=== PATIENT | male | born 1950 | race Caucasian/White ===

== ENCOUNTER 2017-12-20 16:23 | Inpatient (IN) | payer MEDICARE, OTHER ==
[2017-12-20] VITALS (11 sets, daily range): BP systolic 104–143; BP diastolic 65–75; PULSE 77–98; RESP 22–28; TEMP 97.3–98.7; O2SAT 95–98
[~2017-12-20] VITALS: Ht 175.3 cm; Wt 120.4 kg
[~2017-12-20 16:23] MED LIST: ADVA250A INH; ASPI-183 PO; CARV6.25 PO; DUTA1CAP2 PO; GABA300C5 PO; LIPI80TA PO; LOSA100T PO; SPIRCAP INH; TAMS0.4C4 PO
[2017-12-20] MEDS ORDERED: SPIR25TA PO (16:41)
[2017-12-20] MEDS ORDERED: ALBUAER3 INH (16:41)
[2017-12-20] MEDS ORDERED: ALFU10TA2 PO (16:41)
[2017-12-20] MEDS ORDERED: SODIUM CHLORIDE 0.9% FLUSH 10 ML FLUSH IVF PRN (16:45)
--- NOTE | 2017-12-20 16:45 | PD ---
HPI Chief Complaint: Respiratory Distress Time Seen by Provider: 16:25 Travel History International Travel<30 days: No Contact w/Intl Traveler<30days: No Traveled to known affect area: No History of Present Illness HPI This patient arrives critically ill. He complained of shortness of breath and called the paramedics. He has history of severe COPD. Uses CPAP at night and attaches 6 L to the machine at night he says. Paramedics found him on 6 L satting 84%. He has had a gradual worsening of his chronic shortness of breath over the last 24 hours. No chest pain or fever. He has an occasional dry cough. Symptoms are severe. He arrives in profound respiratory failure. BiPAP therapy is alleviating his discomfort to some degree. No exacerbating factors. PFSH Past Medical History Asthma: Yes Cardiovascular Problems: Yes High Cholesterol: Yes Diminished Hearing: No Hypertension: Yes Respiratory: Yes Immunizations Current: Yes Myocardial Infarction: Yes Tetanus Vaccination: Unknown Influenza Vaccination: Yes Past Surgical History Coronary Stent: Yes (X1) Joint Replacement: Yes (LEFT HIP) Social History Alcohol Use: Yes (4 DRINKS A DAY) Tobacco Use: No Substance Use: No Allergies-Medications (Allergen,Severity, Reaction): Coded Allergies: No Known Allergies (Verified Adverse Reaction, Unknown, 12/20/17) Reported Meds & Prescriptions Reported Meds & Active Scripts Active Reported Proair Hfa 8.5 GM Inh (Albuterol Sulfate) 90 Mcg/Act Aer 2 Puff INH Q4-6H PRN 108 mcg/actuation Spironolactone 25 Mg Tab 25 Mg PO BIDPC Alfuzosin ER 24 HR 10 Mg Tab 10 Mg PO DAILY Tamsulosin (Tamsulosin HCl) 0.4 Mg Cap 0.4 Mg PO HS Spiriva Handihaler (Tiotropium Inh) 18 Mcg Cap 18 Mcg INH DAILY 1 capsule = 18 mcg Gabapentin 300 Mg Cap 300 Mg PO BID Dutasteride 0.5 Mg Cap 0.5 Mg PO DAILY Advair Diskus Inh (Fluticasone-Salmeterol Inh) 250-50 Mcg/Blist Aer 1 Puff INH BID Rinse mouth after use. Lipitor (Atorvastatin Calcium) 80 Mg Tab 80 Mg PO HS Losartan (Losartan Potassium) 100 Mg Tab 100 Mg PO DAILY Coreg (Carvedilol) 6.25 Mg Tab 6.25 Mg PO BID Aspirin 325 Mg Tab 325 Mg PO DAILY Review of Systems General / Constitutional: No: Fever Eyes: No: Visual changes HENT: No: Headaches Cardiovascular: No: Chest Pain or Discomfort Respiratory: Positive: Cough, Shortness of Breath, Wheezing Gastrointestinal: No: Abdominal Pain Genitourinary: No: Dysuria Musculoskeletal: No: Pain Skin: No Rash Neurologic: No: Weakness Psychiatric: No: Depression Endocrine: No: Polydipsia Hematologic/Lymphatic: No: Easy Bruising Physical Exam Narrative GENERAL: Obese man arise on BiPAP and respiratory failure SKIN: Focused skin assessment reveals no rash and nodules. Skin is Warm and dry. HEAD: Atraumatic. Normocephalic. EYES: Pupils equal and round. No scleral icterus. No injection or drainage. ENT: No nasal bleeding or discharge. Mucous membranes pink and moist. NECK: Trachea midline. No JVD. CARDIOVASCULAR: Regular rate and rhythm. No murmur appreciated. Tachycardic without ectopy RESPIRATORY: Prominent accessory muscle use. Diffuse expiratory wheezing. Breath sounds equal bilaterally. GASTROINTESTINAL: Abdomen soft, non-tender, nondistended. Hepatic and splenic margins not palpable. MUSCULOSKELETAL: No obvious deformities. No clubbing. No cyanosis. No edema. NEUROLOGICAL: Awake and alert. No obvious cranial nerve deficits. Motor grossly within normal limits. Normal speech. PSYCHIATRIC: Appropriate mood and affect; insight and judgment normal. Data Data Last Documented VS Vital Signs Date Time Temp Pulse Resp B/P (MAP) Pulse Ox O2 Delivery O2 Flow Rate FiO2 12/20/17 17:19 99 CPAP 50 12/20/17 16:42 97.3 98 24 104/65 (78) Orders Orders Complete Blood Count With Diff (12/20/17 16:37) Basic Metabolic Panel (Bmp) (12/20/17 16:37) Iv Access Insert/Monitor (12/20/17 16:37) Electrocardiogram (12/20/17 16:37) Ecg Monitoring (12/20/17 16:37) Oximetry (12/20/17 16:37) Oxygen Administration (12/20/17 16:37) Chest, Single Ap (12/20/17 16:37) Sodium Chloride 0.9% Flush (Ns Flush) (12/20/17 16:45) Albuterol-Ipratropium Neb (Duoneb Neb) (12/20/17 16:45) Resp Bipap / Cpap Non Invas Vt (12/20/17 16:37) Furosemide Inj (Lasix Inj) (12/20/17 17:15) Admit Order (Ed Use Only) (12/20/17 17:26) Labs Laboratory Tests Test 12/20/17 16:30 White Blood Count 10.4 TH/MM3 Red Blood Count 4.67 MIL/MM3 Hemoglobin 15.0 GM/DL Hematocrit 44.7 % Mean Corpuscular Volume 95.8 FL Mean Corpuscular Hemoglobin 32.2 PG Mean Corpuscular Hemoglobin Concent 33.6 % Red Cell Distribution Width 14.8 % Platelet Count 230 TH/MM3 Mean Platelet Volume 8.5 FL Neutrophils (%) (Auto) 75.3 % Lymphocytes (%) (Auto) 13.8 % Monocytes (%) (Auto) 9.9 % Eosinophils (%) (Auto) 0.4 % Basophils (%) (Auto) 0.6 % Neutrophils # (Auto) 7.8 TH/MM3 Lymphocytes # (Auto) 1.4 TH/MM3 Monocytes # (Auto) 1.0 TH/MM3 Eosinophils # (Auto) 0.0 TH/MM3 Basophils # (Auto) 0.1 TH/MM3 CBC Comment DIFF FINAL Differential Comment Blood Urea Nitrogen 27 MG/DL Creatinine 1.36 MG/DL Random Glucose 117 MG/DL Calcium Level 8.8 MG/DL Sodium Level 138 MEQ/L Potassium Level 5.2 MEQ/L Chloride Level 104 MEQ/L Carbon Dioxide Level 24.6 MEQ/L Anion Gap 9 MEQ/L Estimat Glomerular Filtration Rate 52 ML/MIN MDM Medical Decision Making Medical Screen Exam Complete: Yes Emergency Medical Condition: Yes Medical Record Reviewed: Yes Differential Diagnosis Differential diagnosis includes COPD, asthma, pneumonia, bronchitis, CHF Narrative Course I have reviewed the patient's electronic medical record. This patient arrives in profound respiratory distress He is critically ill 2 IVs placed He had IV Solu-Medrol in route He had multiple nebulizer treatments Giving him 3 duo nebs as he still has diffuse wheezing On maintaining BiPAP support He reports this is improving and he is not as labored as he was. He will need closely watched with multiple rechecks. If he fails BiPAP therapy he will require intubation. He will be a very challenging intubation given his obesity and body habitus I reviewed his chest x-ray. Radiologist brings up the possibility of some pulmonary edema. I did give him 1 dose of IV Lasix in case there is some pulmonary edema contributing. He does not have any peripheral edema. He is on Spironolactone Reviewed his EKG shows no acute ST elevations Labs sent CBC is normal Metabolic profile reveals minimal abnormalities I placed a call to the wood handler to discuss. He will be a admission to intensive care on BiPAP therapy. Upon recheck he is clinically much improved. Saturations are up to upper 90s and he is breathing much easier. Critical Care Narrative Aggregate critical care time was 36 minutes. Time to perform other separately billable procedures was not included in the critical care time. My time did not include minutes spent treating any other patients simultaneously or on activities that did not directly contribute to the patient's treatment. The services I provided to this patient were to treat and/or prevent clinically significant deterioration that could result in: Respiratory failure, cardiopulmonary arrest, cardiac arrhythmia I provided critical care services requiring my management, as noted below: Chart data review, documentation time, medication orders and management, vital sign assessments/reviewing monitor data, ordering and reviewing lab tests, ordering and interpreting/reviewing x-rays and diagnostic studies, care of the patient and discussion of the patient with the admitting physicians. Diagnosis Primary Impression: Acute respiratory failure with hypoxia Additional Impression: COPD with acute exacerbation Admitting Information Admitting Physician Requests: Admit Óscar Mcmillan MD Dec 20, 2017 16:45
--- NOTE | 2017-12-20 17:01 | RADRPT ---
EXAM DATE/TIME: 12/20/2017 16:42 [facility] COMPARISON: No previous studies available for comparison. INDICATIONS : Short of breath. MEDICAL HISTORY : Hypertension. Chronic obstructive pulmonary disease. SURGICAL HISTORY : None. ENCOUNTER: Initial ACUITY: 1 day PAIN SCORE: 0/10 LOCATION: Bilateral chest FINDINGS: Cardiomegaly with moderate motion artifact. Probable mild to moderate interstitial edema. No pneumo thorax. No pleural effusion. The portion of the bony skeleton visualized is unremarkable. CONCLUSION: Cardiomegaly with probable mild/moderate congestive failure Moderate artifact from respiration. Lei Lomax MD FACR on December 20, 2017 at 16:58 Board Certified Radiologist. This report was verified electronically.
[2017-12-20] MEDS: RESP: ALBUTEROL 2.5 MG/IPRATROPIUM 0.5 MG NEB (SCH) INH ×2 (17:14→19:55)
[2017-12-20] MEDS ORDERED: FUROSEMIDE 100 MG/10 ML VIAL IV PUSH ONE (17:15)
[2017-12-20 17:21] LABS: AUTOMATED NEUTROPHIL # 7.8 TH/MM3 (1.8-7.7); BASOPHIL # 0.1 TH/MM3 (0-0.2); BASOPHIL % 0.6 % (0.0-2.0); EOSINOPHIL % 0.4 % (0.0-4.0); HEMATOCRIT 44.7 % (39.0-51.0); LYMPH % 13.8 % (9.0-44.0); LYMPHOCYTE # 1.4 TH/MM3 (1.0-4.8); MEAN CELL VOLUME 95.8 FL (80.0-100.0); MEAN CORPUSCULAR HEMOGLOBIN 32.2 PG (27.0-34.0); MEAN CORPUSCULAR HGB CONC 33.6 % (32.0-36.0); MEAN PLATELET VOLUME 8.5 FL (7.0-11.0); MONO % 9.9 % (0.0-8.0); NEUT % 75.3 % (16.0-70.0); PLATELET COUNT 230 TH/MM3 (150-450); RED BLOOD COUNT 4.67 MIL/MM3 (4.50-5.90); RED CELL DISTRIBUTION WIDTH 14.8 % (11.6-17.2); WHITE BLOOD COUNT 10.4 TH/MM3 (4.0-11.0)
[2017-12-20 17:30] LABS: BICARBONATE 24.6 MEQ/L (21.0-32.0); CALCIUM 8.8 MG/DL (8.5-10.1); CREATININE 1.36 MG/DL (0.60-1.30)
[2017-12-20] MEDS ORDERED: MISCELLANEOUS NURSING INFORMATION XX SCH (18:30)
[2017-12-20] MEDS ORDERED: CHLORHEXIDINE GLUCONATE 2 % 1 PACK (2 CLOTHS) TOP PRN (18:30)
[2017-12-20] MEDS ORDERED: ONDANSETRON HCL 4 MG/2 ML VIAL IV PUSH PRN (18:30)
[2017-12-20] MEDS ORDERED: LACTULOSE SYRUP 20 GM/30 ML CUP PO PRN (18:30)
[2017-12-20] MEDS ORDERED: ACETAMINOPHEN 325 MG TAB PO PRN (18:30)
[2017-12-20] MEDS ORDERED: MAGNESIUM HYDROXIDE SUSP 30 ML CUP PO PRN (18:30)
[2017-12-20] MEDS ORDERED: SENNOSIDES 8.6 MG TAB PO PRN (18:30)
[2017-12-20] MEDS ORDERED: SODIUM CHLORIDE 0.9% FLUSH 10 ML FLUSH IV FLUSH PRN (18:30)
[2017-12-20] MEDS ORDERED: BISACODYL 10 MG SUPP RECTAL PRN (18:30)
--- NOTE | 2017-12-20 18:50 | HHI.HP ---
HPI Service Critical Care Medicine Primary Care Physician Tree Hough MD Admission Diagnosis acute hypoxic resp failure, COPD Diagnosis: Travel History International Travel<30 Days: No Contact w/Intl Traveler <30 Da: No Traveled to Known Affected Are: No History of Present Illness 67-year-old morbidly obese gentleman complained of shortness of breath and called the paramedics. He has history of severe COPD. Uses CPAP at night and uses 6 L of oxygen at night. Paramedics found him on 6 L satting 84%. He has had a gradual worsening of his chronic shortness of breath over the last 24 hours. No chest pain or fever. He has an occasional dry cough. Presented to emergency department in profound respiratory failure. BiPAP therapy was immediately applied with IV steroids and some diuretics with improvement of symptoms. Review of Systems ROS Unobtainable patient's on facemask BiPAP in severe respiratory distress Past Family Social History Allergies: Coded Allergies: No Known Allergies (Verified Allergy, Unknown, 12/20/17) Past Medical History Asthma: Yes High Cholesterol: Yes Hypertension: Yes Myocardial Infarction: Yes 15 years ago Past Surgical History Coronary Stent: Yes (X1) Joint Replacement: Yes (LEFT HIP) Reported Medications Reported Meds & Active Scripts Active Reported Proair Hfa 8.5 GM Inh (Albuterol Sulfate) 90 Mcg/Act Aer 2 Puff INH Q4-6H PRN 108 mcg/actuation Spironolactone 25 Mg Tab 25 Mg PO BIDPC Alfuzosin ER 24 HR 10 Mg Tab 10 Mg PO DAILY Tamsulosin (Tamsulosin HCl) 0.4 Mg Cap 0.4 Mg PO HS Spiriva Handihaler (Tiotropium Inh) 18 Mcg Cap 18 Mcg INH DAILY 1 capsule = 18 mcg Gabapentin 300 Mg Cap 300 Mg PO BID Dutasteride 0.5 Mg Cap 0.5 Mg PO DAILY Advair Diskus Inh (Fluticasone-Salmeterol Inh) 250-50 Mcg/Blist Aer 1 Puff INH BID Rinse mouth after use. Lipitor (Atorvastatin Calcium) 80 Mg Tab 80 Mg PO HS Losartan (Losartan Potassium) 100 Mg Tab 100 Mg PO DAILY Coreg (Carvedilol) 6.25 Mg Tab 6.25 Mg PO BID Aspirin 325 Mg Tab 325 Mg PO DAILY Active Ordered Medications Current Medications Medications (Trade) Dose Ordered Sig/Marielena Route PRN Reason Start Time Stop Time Status Last Admin Dose Admin Sodium Chloride (NS Flush) 2 ml UNSCH PRN IVF FLUSH AFTER USING IV ACCESS 12/20/17 16:45 Aspirin (Aspirin) 325 mg DAILY PO 12/21/17 09:00 UNV Atorvastatin Calcium (Lipitor) 80 mg HS PO 12/20/17 21:00 UNV Carvedilol (Coreg) 6.25 mg BID PO 12/20/17 21:00 UNV Gabapentin (Neurontin) 300 mg BID PO 12/20/17 21:00 UNV Tamsulosin HCl (Flomax) 0.4 mg HS PO 12/20/17 21:00 UNV Tiotropium [place] (Spiriva Inh) 18 mcg DAILY INH 12/21/17 09:00 UNV Non-Formulary Medication 10 mg DAILY PO 12/21/17 09:00 UNV Non-Formulary Medication 0.5 mg DAILY PO 12/21/17 09:00 UNV Non-Formulary Medication 1 puff BID INH 12/20/17 21:00 UNV Sodium Chloride (NS Flush) 2 ml UNSCH PRN IV FLUSH FLUSH AFTER USING IV ACCESS 12/20/17 18:30 UNV Sodium Chloride (NS Flush) 2 ml BID IV FLUSH 12/20/17 21:00 UNV Acetaminophen (Tylenol) 650 mg Q6H PRN PO PAIN 1-5 AND/OR FEVER >101F 12/20/17 18:30 UNV Morphine Sulfate (Morphine Inj) 2 mg Q2H PRN IV PUSH PAIN SCALE 6 TO 10 12/20/17 18:30 UNV Famotidine (Pepcid Inj) 20 mg Q12HR IV PUSH 12/20/17 21:00 UNV Ondansetron HCl (Zofran Inj) 4 mg Q6H PRN IV PUSH NAUSEA OR VOMITING 12/20/17 18:30 UNV Temazepam (Restoril) 15 mg HS PRN PO INSOMNIA 12/20/17 18:30 UNV Albuterol/ Ipratropium (Duoneb Neb) 1 ampule Q4HR NEB INH 12/20/17 20:00 UNV Albuterol/ Ipratropium (Duoneb Neb) 1 ampule Q2HR NEB PRN INH WHEEZING 12/20/17 18:30 UNV Heparin Sodium (Porcine) (Heparin Inj) 5,000 units Q8H SQ 12/20/17 18:30 UNV Miscellaneous Information 1 Q361D XX 12/20/17 18:30 UNV Chlorhexidine Gluconate (Chlorhexidine 2% Cloth) 3 pack Taper DAILY@04 TOP 12/21/17 04:00 12/17/18 03:59 UNV Chlorhexidine Gluconate (Chlorhexidine 2% Cloth) 3 pack UNSCH PRN TOP HYGIENIC CARE 12/20/17 18:30 UNV Senna/Docusate Sodium (Cherrie-Colace) 1 tab BID PO 12/20/17 21:00 UNV Magnesium Hydroxide (Milk Of Magnesia Liq) 30 ml Q12H PRN PO Mild constipation 12/20/17 18:30 UNV Sennosides (Senokot) 17.2 mg Q12H PRN PO Moderate constipation 12/20/17 18:30 UNV Bisacodyl (Dulcolax Supp) 10 mg DAILY PRN RECTAL SEVERE CONSITIPATION 12/20/17 18:30 UNV Lactulose (Lactulose Liq) 30 ml DAILY PRN PO SEVERE CONSITIPATION 12/20/17 18:30 UNV Methylprednisolone Sodium Succinate (SoluMEDROL INJ) 40 mg Q6HR IV PUSH 12/21/17 00:00 UNV Losartan Potassium (Cozaar) 100 mg DAILY PO 12/21/17 09:00 UNV Furosemide (Lasix Inj) 20 mg Q6H IV PUSH 12/20/17 18:45 12/22/17 00:46 UNV Family History No family history significant of early coronary artery disease or malignancy Social History Alcohol Use: Yes (4 DRINKS A DAY) Tobacco Use: No, he quit smoking 6 months ago, lifelong smoker otherwise Substance Use: No Physical Exam Vital Signs Vital Signs Date Time Temp Pulse Resp B/P (MAP) Pulse Ox O2 Delivery O2 Flow Rate FiO2 12/20/17 18:16 92 23 119/75 (90) 95 BiPAP 50 12/20/17 17:19 99 CPAP 50 12/20/17 16:42 97.3 98 24 104/65 (78) 97 CPAP 100 12/20/17 16:42 97 CPAP 100 12/20/17 16:33 87 22 143/75 (97) 97 CPAP 100 12/20/17 16:32 87 96 CPAP 100 12/20/17 16:25 79 143/75 (97) 95 Physical Exam GENERAL: Morbidly obese gentleman on the facemask BiPAP in moderate respiratory distress SKIN: Warm and dry. HEAD: Normocephalic. EYES: No scleral icterus. No injection or drainage. NECK: Supple, trachea midline. No JVD or lymphadenopathy. CARDIOVASCULAR: Regular rate and rhythm without murmurs, gallops, or rubs. RESPIRATORY: Breath sounds equal bilaterally. No accessory muscle use. GASTROINTESTINAL: Abdomen soft, non-tender, nondistended. MUSCULOSKELETAL: No cyanosis, or edema. BACK: Nontender without obvious deformity. NEURO EXAM: GCS: 15 Mental Status: The patient is alert and oriented to person, place, and time with normal speech. Cranial Nerves: Visual acuity intact bilaterally. Visual pino normal in all quadrants. Pupils are round, reactive to light. Extraocular movements are intact without ptosis. Hearing is normal bilaterally. Voice is normal. Tongue protrudes midline and moves symmetrically. Reflexes: Biceps, patellar, and Achilles are 2/4 bilaterally. No clonus. Sensation: Sensation is intact bilaterally to pain and light touch. Two-point discrimination is intact. Motor: Good muscle tone. Strength is 5/5 bilaterally. Cerebellar: Sarvls-hm-lolc and ozwb-qi-[id number] test normal bilaterally. Laboratory Laboratory Tests Test 12/20/17 16:30 White Blood Count 10.4 Red Blood Count 4.67 Hemoglobin 15.0 Hematocrit 44.7 Mean Corpuscular Volume 95.8 Mean Corpuscular Hemoglobin 32.2 Mean Corpuscular Hemoglobin Concent 33.6 Red Cell Distribution Width 14.8 Platelet Count 230 Mean Platelet Volume 8.5 Neutrophils (%) (Auto) 75.3 Lymphocytes (%) (Auto) 13.8 Monocytes (%) (Auto) 9.9 Eosinophils (%) (Auto) 0.4 Basophils (%) (Auto) 0.6 Neutrophils # (Auto) 7.8 Lymphocytes # (Auto) 1.4 Monocytes # (Auto) 1.0 Eosinophils # (Auto) 0.0 Basophils # (Auto) 0.1 CBC Comment DIFF FINAL Differential Comment Blood Urea Nitrogen 27 Creatinine 1.36 Random Glucose 117 Calcium Level 8.8 Sodium Level 138 Potassium Level 5.2 Chloride Level 104 Carbon Dioxide Level 24.6 Anion Gap 9 Estimat Glomerular Filtration Rate 52 Result Diagram: 12/20/17 1630 12/20/17 1630 Imaging Last 24 hours Impressions Chest X-Ray 12/20/17 1637 Signed Impressions: Service Date/Time: Wednesday, December 20, 2017 16:42 - CONCLUSION: Cardiomegaly with probable mild/moderate congestive failure Moderate artifact from respiration. Lei Lomax MD FACR Septic Shock Reassessment Septic shock perfusion: reassessment completed Caprini VTE Risk Assessment Caprini VTE Risk Assessment: Mod/High Risk (score >= 2) Caprini Risk Assessment Model Point Value = 1 Point Value = 2 Point Value = 3 Point Value = 5 Age 41-60 Minor surgery BMI > 25 kg/m2 Swollen legs Varicose veins or History of unexplained or recurrent spontaneous Oral contraceptives or hormone replacement Sepsis (< 1 month) Serious lung disease, including pneumonia (< 1 month) Abnormal pulmonary function Acute myocardial infarction Congestive heart failure (< 1 month) History of inflammatory bowel disease Medical patient at bed rest Age 61-74 Arthroscopic surgery Major open surgery (> 45 min) Laparoscopic surgery (> 45 min) Malignancy Confined to bed (> 72 hours) Immobilizing plaster cast Central venous access Age >= 75 History of VTE Family history of VTE Factor V Leiden Prothrombin [id number] Lupus anticoagulant Anticardiolipin antibodies Elevated serum homocysteine Heparin-induced thrombocytopenia Other congenital or acquired thrombophilia Stroke (< 1 month) Elective arthroplasty Hip, pelvis, or leg fracture Acute spinal cord injury (< 1 month) Prophylaxis Regimen Total Risk Factor Score Risk Level Prophylaxis Regimen 0-1 Low Early ambulation 2 Moderate Order ONE of the following: *Sequential Compression Device (SCD) *Heparin 5000 units SQ BID 3-4 Higher Order ONE of the following medications: *Heparin 5000 units SQ TID *Enoxaparin/Lovenox 40 mg SQ daily (WT < 150 kg, CrCl > 30 mL/min) *Enoxaparin/Lovenox 30 mg SQ daily (WT < 150 kg, CrCl > 10-29 mL/min) *Enoxaparin/Lovenox 30 mg SQ BID (WT < 150 kg, CrCl > 30 mL/min) AND/OR *Sequential Compression Device (SCD) 5 or more Highest Order ONE of the following medications: *Heparin 5000 units SQ TID (Preferred with Epidurals) *Enoxaparin/Lovenox 40 mg SQ daily (WT < 150 kg, CrCl > 30 mL/min) *Enoxaparin/Lovenox 30 mg SQ daily (WT < 150 kg, CrCl > 10-29 mL/min) *Enoxaparin/Lovenox 30 mg SQ BID (WT < 150 kg, CrCl > 30 mL/min) AND *Sequential Compression Device (SCD) Assessment and Plan Assessment and Plan Respiratory failure COPD exacerbation - DuoNeb scheduled and when necessary - IV steroids - Empiric antibiotics - Follow-up cultures and urine antigens - Pulmonary consultation Acute on chronic CHF - Rule out acute coronary syndrome - Patient's weigher and charger Dr. Mina will be consulted - Series of troponins EKGs - Repeat 2-D echo - Continue aspirin - Losartan - Coreg - Hold spironolactone due to height potassium - IV Lasix Hypertension - Continue home meds Coreg and losartan Renal insufficiency - Unknown baseline creatinine - We'll monitor urine output and creatinine levels and electrolytes DVT GI prophylaxis - Teds SCDs - Subcutaneous heparin - Pepcid Critical Care: The total critical care time was 35 minutes. Time to perform other separately billable procedures was not included in the critical care time. Efraín Painter MD Dec 20, 2017 6:50 pm
[2017-12-20] MEDS ORDERED: MORPHINE SULFATE 2 MG/ML INJ IV PRN (20:00)
[2017-12-20] MEDS ORDERED: NON-FORMULARY DRUG (Fluticasone-Salmeterol Inh (Advair Diskus Inh) 1 PUFF) INH SCH (21:00)
[2017-12-20] MEDS: BUDESONIDE-FORMOTEROL 160/4.5 MCG INHALER INH SCH (21:00)
[2017-12-20] MEDS: FUROSEMIDE 20 MG/2 ML VIAL IV PUSH SCH (21:07)
[2017-12-20] MEDS: LEVOFLOXACIN 750 MG PREMIX INJ 150 ML IV SCH (21:07)
[2017-12-20] MEDS: GABAPENTIN 300 MG CAP PO SCH (21:08)
[2017-12-20] MEDS: FAMOTIDINE 20 MG/2 ML VIAL IV PUSH SCH (21:08)
[2017-12-20] MEDS: SODIUM CHLORIDE 0.9% FLUSH 10 ML FLUSH IV FLUSH SCH (21:08)
[2017-12-20] MEDS: CARVEDILOL 6.25 MG TAB PO SCH (21:08)
[2017-12-20] MEDS: HEPARIN SODIUM - SQ 10,000 UNITS/ML VIAL SQ SCH (21:09)
[2017-12-20] MEDS: TAMSULOSIN HCL 0.4 MG CAP PO SCH (22:23)
[2017-12-20] MEDS: DOCUSATE SODIUM 50 MG/SENNA 8.6 MG TAB PO SCH (22:23)
[2017-12-20] MEDS: ATORVASTATIN 80 MG TAB PO SCH (22:23)
[2017-12-21] VITALS (34 sets, daily range): BP systolic 82–125; BP diastolic 51–74; PULSE 70–102; RESP 14–41; TEMP 97.7–98.5; O2SAT 89–97
[2017-12-21] MEDS: RESP: ALBUTEROL 2.5 MG/IPRATROPIUM 0.5 MG NEB (SCH) INH ×6 (00:17→20:18)
[2017-12-21] MEDS: TEMAZEPAM 15 MG CAP PO PRN ×2 (00:56→21:46)
[2017-12-21] MEDS: FUROSEMIDE 20 MG/2 ML VIAL IV PUSH SCH ×4 (00:56→19:51)
[2017-12-21] MEDS: methylPREDNISolone SOD SUCC 40 MG/1 ML VIAL IV PUSH SCH ×4 (00:56→17:41)
[2017-12-21] MEDS: RESP: ALBUTEROL 2.5 MG/IPRATROPIUM 0.5 MG NEB (PRN) INH (02:10)
[2017-12-21 02:42] LABS: ALBUMIN 3.3 GM/DL (3.4-5.0); AST (GOT) 14 U/L (15-37); BICARBONATE 27.6 MEQ/L (21.0-32.0); BLOOD UREA NITROGEN 35 MG/DL (7-18); CALCIUM 8.3 MG/DL (8.5-10.1); CHLORIDE 101 MEQ/L (98-107); CREATININE 1.48 MG/DL (0.60-1.30); GLOMERULAR FILTRATION RATE 47 ML/MIN (>89); GLUCOSE,RANDOM 154 MG/DL (74-106); MAGNESIUM 2.2 MG/DL (1.5-2.5); SODIUM (NA) 138 MEQ/L (136-145)
[2017-12-21 02:47] LABS: ALKALINE PHOSPHATASE 73 U/L (45-117); ALT (GPT) 21 U/L (12-78); PHOSPHORUS 4.8 MG/DL (2.5-4.9); TOTAL BILIRUBIN ADULT 0.4 MG/DL (0.2-1.0); TOTAL PROTEIN 7.7 GM/DL (6.4-8.2); TROPONIN I LESS THAN 0.02 NG/ML (0.02-0.05)
[2017-12-21] MEDS: CHLORHEXIDINE GLUCONATE 2 % 1 PACK (2 CLOTHS) TOP SCH (04:00)
--- NOTE | 2017-12-21 04:53 | RADRPT ---
EXAM DATE/TIME: 12/21/2017 03:07 [facility] COMPARISON: CHEST SINGLE AP, December 20, 2017, 16:42. INDICATIONS : Short of breath. MEDICAL HISTORY : Hypertension. Chronic obstructive pulmonary disease. SURGICAL HISTORY : ENCOUNTER: Subsequent ACUITY: 2 days PAIN SCORE: 0/10 LOCATION: Bilateral chest FINDINGS: Frontal view of the chest demonstrates ill-defined areas of non-consolidative infiltrate in the later al right lower lung. Left lung is clear. Moderate cardiomegaly is stable. Both hemidiaphragms are well delineated. CONCLUSION: No patchy non-consolidative infiltrates in the lower lateral right lung. Evangelist Blake MD on December 21, 2017 at 4:50 Board Certified Radiologist. This report was verified electronically.
[2017-12-21] MEDS: HEPARIN SODIUM - SQ 10,000 UNITS/ML VIAL SQ SCH ×3 (05:31→19:53)
[2017-12-21 07:23] LABS: INTERNATIONAL NORMALIZED RATIO 1.1 RATIO
--- NOTE | 2017-12-21 07:44 | MB ---
cc: Homero López MD, Daniel A MD DATE OF CONSULT: 12/20/2017 REQUESTING PHYSICIAN: Dr. Worley REASON FOR CONSULTATION: COPD exacerbation. HISTORY OF PRESENT ILLNESS: Mr. Garcia is a pleasant 67-year-old male with a longstanding history of COPD, obstructive sleep apnea, who uses a CPAP machine and oxygen at nighttime. He went on a cruise recently and his girlfriend was also sick. He has not been doing well for at least 1 week. He has been having increasing shortness of breath and has wheezing. Did not have fever or chills. No night sweats. Because of worsening of symptoms, he came to the emergency room. He had a workup done. His WBC count is 10.4, hemoglobin 15.0, hematocrit 44.7, MCV 95, platelet count 230. His sodium is 130, potassium 5.2, chloride 104, CO2 24, BUN 27, creatinine 1.36. Chest x-ray shows cardiomegaly, possible moderate congestive heart failure. He is put on BiPAP and now feels somewhat better. His sister and daughter are at the bedside. 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 MEDICATIONS: He is currently taking Spiriva once a day, aspirin 325 mg, losartan 100 mg, finasteride 5 mg a day, Solu-Medrol 40 mg q. 6 hours, Lipitor 80 mg a day, Coreg 6.25 mg twice a day, Neurontin 600 mg twice a day, Flomax 0.4 mg, Symbicort twice a day, albuterol/Atrovent nebulizer treatment, Levaquin 750 mg a day, temazepam 15 mg at nighttime. ALLERGIES: NO KNOWN DRUG ALLERGIES. SOCIAL HISTORY: He is and has a girlfriend. He has a long history of smoking, which he quit 6 months ago. He drinks 2-3 drinks at nighttime. 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 He used to travel a lot. FAMILY HISTORY: He has 2 children. REVIEW OF SYSTEMS: He walks only a short distance. Has gained some weight. No DVT or pulmonary embolism. He has a history of coronary artery disease. No seizures, stroke or embolism. PHYSICAL EXAM: GENERAL: Moderately obese male, short of breath on BiPAP. VITAL SIGNS: Blood pressure 113/66, heart rate 87, respirations 20, temperature 98. HEENT: Pupils are equal and reactive to light. Oral mucosa and nasal mucosa normal. NECK: Supple. JVD not raised. CHEST: He has bibasilar expiratory rhonchi. CARDIOVASCULAR: S1, S2 normal. ABDOMEN: Obese, nontender. Bowel sounds are present. EXTREMITIES: 1+ pedal edema. IMPRESSION: 1. Respiratory failure. 2. Chronic obstructive pulmonary disease exacerbation. 3. Obstructive sleep apnea. 4. Bronchitis. 5. Hypertension. 6. Coronary artery disease. 7. Morbid obesity. PLAN: I discussed with the patient and his family, he is being admitted to the intensive care unit. We will keep him on BiPAP, supplement his oxygen, continue antibiotic, aerosol treatment, IV Solu-Medrol and we will monitor his electrolytes. Further treatment will depend upon his course in the hospital. Thank you, Dr. Worley for this consult. Homero López MD ADA/DL , 09:41 PM , 07:43 AM
[2017-12-21 07:53] LABS: ALT (GPT) 21 U/L (12-78); AST (GOT) 15 U/L (15-37); BICARBONATE 24.3 MEQ/L (21.0-32.0); CHLORIDE 101 MEQ/L (98-107); CREATININE 1.46 MG/DL (0.60-1.30); GLOMERULAR FILTRATION RATE 48 ML/MIN (>89); GLUCOSE,RANDOM 148 MG/DL (74-106); MAGNESIUM 2.3 MG/DL (1.5-2.5); PHOSPHORUS 4.6 MG/DL (2.5-4.9); SODIUM (NA) 136 MEQ/L (136-145)
[2017-12-21 07:56] LABS: ALKALINE PHOSPHATASE 72 U/L (45-117); TOTAL BILIRUBIN ADULT 0.4 MG/DL (0.2-1.0); TOTAL PROTEIN 7.7 GM/DL (6.4-8.2)
[2017-12-21 07:57] LABS: BLOOD UREA NITROGEN 31 MG/DL (7-18)
[2017-12-21 08:05] LABS: AUTOMATED NEUTROPHIL # 5.8 TH/MM3 (1.8-7.7); BASOPHIL % 0.3 % (0.0-2.0); HEMATOCRIT 42.7 % (39.0-51.0); HEMOGLOBIN 14.6 GM/DL (13.0-17.0); LYMPH % 9.8 % (9.0-44.0); LYMPHOCYTE # 0.6 TH/MM3 (1.0-4.8); MEAN CELL VOLUME 95.2 FL (80.0-100.0); MEAN CORPUSCULAR HEMOGLOBIN 32.6 PG (27.0-34.0); MEAN CORPUSCULAR HGB CONC 34.2 % (32.0-36.0); MEAN PLATELET VOLUME 8.6 FL (7.0-11.0); MONO % 1.9 % (0.0-8.0); MONOCYTE # 0.1 TH/MM3 (0-0.9); PLATELET COUNT 180 TH/MM3 (150-450); RED BLOOD COUNT 4.49 MIL/MM3 (4.50-5.90); RED CELL DISTRIBUTION WIDTH 14.1 % (11.6-17.2); WHITE BLOOD COUNT 6.6 TH/MM3 (4.0-11.0)
[2017-12-21] MEDS: TIOTROPIUM BROMIDE 18 MCG INH INH SCH (09:00)
[2017-12-21] MEDS: GABAPENTIN 300 MG CAP PO SCH ×2 (09:00→19:53)
[2017-12-21] MEDS ORDERED: DUTASTERIDE 0.5 MG PO SCH (09:00)
[2017-12-21] MEDS ORDERED: ALFUZOSIN 10 MG PO SCH (09:00)
[2017-12-21] MEDS: SODIUM CHLORIDE 0.9% FLUSH 10 ML FLUSH IV FLUSH SCH ×2 (09:00→19:51)
[2017-12-21] MEDS: BUDESONIDE-FORMOTEROL 160/4.5 MCG INHALER INH SCH ×2 (09:00→19:53)
[2017-12-21] MEDS: LOSARTAN 50 MG TAB PO SCH (09:00)
[2017-12-21] MEDS: FINASTERIDE 5 MG TAB PO SCH (09:18)
[2017-12-21] MEDS: FAMOTIDINE 20 MG/2 ML VIAL IV PUSH SCH ×2 (09:18→19:51)
[2017-12-21] MEDS: DOCUSATE SODIUM 50 MG/SENNA 8.6 MG TAB PO SCH ×2 (09:18→19:52)
[2017-12-21] MEDS: ASPIRIN 325 MG TAB PO SCH (09:18)
[2017-12-21] MEDS: CARVEDILOL 6.25 MG TAB PO SCH ×2 (09:18→19:52)
[2017-12-21] MEDS ORDERED: oxyCODONE/ACETAMINOPHEN 5 MG/325 MG TAB PO PRN (10:45)
[2017-12-21] MEDS ORDERED: oxyCODONE/ACETAMINOPHEN 10 MG/325 MG TAB PO PRN (10:45)
[2017-12-21] MEDS ORDERED: SENNOSIDES 8.6 MG TAB PO PRN (10:45)
[2017-12-21] MEDS ORDERED: LACTULOSE SYRUP 20 GM/30 ML CUP PO PRN (10:45)
[2017-12-21] MEDS ORDERED: BISACODYL 10 MG SUPP RECTAL PRN (10:45)
[2017-12-21] MEDS ORDERED: METOCLOPRAMIDE HCL 10 MG/2 ML VIAL IV PUSH PRN (10:45)
[2017-12-21] MEDS ORDERED: MAGNESIUM HYDROXIDE SUSP 30 ML CUP PO PRN (10:45)
[2017-12-21] MEDS ORDERED: ONDANSETRON HCL 4 MG/2 ML VIAL IVP PRN (10:45)
[2017-12-21] MEDS ORDERED: NALOXONE HCL 0.4 MG/ML AMP IV PUSH PRN (10:45)
[2017-12-21] MEDS ORDERED: cloNIDine HCL 0.1 MG TAB PO PRN (10:45)
--- NOTE | 2017-12-21 10:49 | HHI.PR ---
Subjective Remarks 67-year-old morbidly obese gentleman complained of shortness of breath and called the paramedics. He has history of severe COPD. Uses CPAP at night and uses 6 L of oxygen at night. Paramedics found him on 6 L satting 84%. He has had a gradual worsening of his chronic shortness of breath over the last 24 hours. No chest pain or fever. He has an occasional dry cough. Presented to emergency department in profound respiratory failure. BiPAP therapy was immediately applied with IV steroids and some diuretics with improvement of symptoms. 12-21 patient has been transferred to our service today from the critical care team Still short of breath Not sure how much oxygen he is on at home Patient states he only wears oxygen at night through his BiPAP/CPAP He states he does not wear it any other time of the day at home He states his hospital cleaner is Dr. HAWTHORNE We will ask him to evaluate and treat Increase physical therapy and Occupational Therapy We will add Mucinex and DuoNeb's and steroids and incentive spirometry A.m. labs Objective Vitals Vital Signs Date Time Temp Pulse Resp B/P (MAP) Pulse Ox O2 Delivery O2 Flow Rate FiO2 12/21/17 08:52 97 55 12/21/17 08:00 97.9 76 16 125/74 (91) 95 12/21/17 08:00 70 12/21/17 07:00 Bi-Pap 65 12/21/17 06:00 73 12/21/17 04:46 94 65 12/21/17 04:00 98.2 70 14 96/59 (71) 90 12/21/17 04:00 70 12/21/17 02:15 Bi-Pap 65 12/21/17 02:11 94 65 12/21/17 02:00 74 12/21/17 00:00 98.5 70 19 113/72 (86) 96 12/21/17 00:00 70 12/20/17 23:00 97 Bi-Pap 45 12/20/17 23:00 77 25 109/65 (80) 97 12/20/17 22:46 96 45 12/20/17 22:05 82 12/20/17 22:00 98 Partial Non-Rebreather 15.00 12/20/17 22:00 98.7 82 28 104/68 (80) 98 12/20/17 21:09 87 20 113/66 (82) 92 BiPAP 12/20/17 19:00 97 50 12/20/17 18:16 92 23 119/75 (90) 95 BiPAP 50 12/20/17 17:19 99 CPAP 50 12/20/17 16:42 97.3 98 24 104/65 (78) 97 CPAP 100 12/20/17 16:42 97 CPAP 100 12/20/17 16:37 97 100 12/20/17 16:33 87 22 143/75 (97) 97 CPAP 100 12/20/17 16:32 87 96 CPAP 100 12/20/17 16:25 79 143/75 (97) 95 I/O 12/20/17 12/20/17 12/20/17 12/21/17 12/21/17 12/21/17 07:00 15:00 23:00 07:00 15:00 23:00 Intake Total 330 ml Output Total 550 ml 600 ml Balance -550 ml -270 ml Intake Oral 180 ml IV Total 150 ml Output Urine Total 550 ml 600 ml # Voids 1 2 Result Diagram: 12/21/17 0640 12/21/17 0640 Other Results Laboratory Tests Test 12/20/17 16:30 12/20/17 22:30 12/21/17 02:15 12/21/17 05:29 White Blood Count 10.4 TH/MM3 Red Blood Count 4.67 MIL/MM3 Hemoglobin 15.0 GM/DL Hematocrit 44.7 % Mean Corpuscular Volume 95.8 FL Mean Corpuscular Hemoglobin 32.2 PG Mean Corpuscular Hemoglobin Concent 33.6 % Red Cell Distribution Width 14.8 % Platelet Count 230 TH/MM3 Mean Platelet Volume 8.5 FL Neutrophils (%) (Auto) 75.3 % Lymphocytes (%) (Auto) 13.8 % Monocytes (%) (Auto) 9.9 % Eosinophils (%) (Auto) 0.4 % Basophils (%) (Auto) 0.6 % Neutrophils # (Auto) 7.8 TH/MM3 Lymphocytes # (Auto) 1.4 TH/MM3 Monocytes # (Auto) 1.0 TH/MM3 Eosinophils # (Auto) 0.0 TH/MM3 Basophils # (Auto) 0.1 TH/MM3 CBC Comment DIFF FINAL Differential Comment Blood Urea Nitrogen 27 MG/DL 35 MG/DL Creatinine 1.36 MG/DL 1.48 MG/DL Random Glucose 117 MG/DL 154 MG/DL Calcium Level 8.8 MG/DL 8.3 MG/DL Sodium Level 138 MEQ/L 138 MEQ/L Potassium Level 5.2 MEQ/L 5.0 MEQ/L Chloride Level 104 MEQ/L 101 MEQ/L Carbon Dioxide Level 24.6 MEQ/L 27.6 MEQ/L Anion Gap 9 MEQ/L 9 MEQ/L Estimat Glomerular Filtration Rate 52 ML/MIN 47 ML/MIN Troponin I LESS THAN 0.02 NG/ML LESS THAN 0.02 NG/ML Nasal Screen MRSA (PCR) MRSA NOT DETECTED Total Protein 7.7 GM/DL Albumin 3.3 GM/DL Phosphorus Level 4.8 MG/DL Magnesium Level 2.2 MG/DL Alkaline Phosphatase 73 U/L Aspartate Amino Transf (AST/SGOT) 14 U/L Alanine Aminotransferase (ALT/SGPT) 21 U/L Total Bilirubin 0.4 MG/DL Blood Gas Puncture Site RT RADIAL Blood Gas Patient Temperature 98.6 Blood Gas HCO3 26 mmol/L Blood Gas Base Excess 0.7 mmol/L Blood Gas Oxygen Saturation 96 % Arterial Blood pH 7.30 Arterial Blood Partial Pressure CO2 55 mmHg Arterial Blood Partial Pressure O2 138 mmHg Arterial Blood Oxygen Content 19.7 Vol % Arterial Blood Carboxyhemoglobin 0.3 % Arterial Blood Methemoglobin 1.6 % Blood Gas Hemoglobin 14.4 G/DL Oxygen Delivery Device BIPAP Blood Gas Ventilator Setting 10/5 Blood Gas Inspired Oxygen 65 % Test 12/21/17 06:40 White Blood Count 6.6 TH/MM3 Red Blood Count 4.49 MIL/MM3 Hemoglobin 14.6 GM/DL Hematocrit 42.7 % Mean Corpuscular Volume 95.2 FL Mean Corpuscular Hemoglobin 32.6 PG Mean Corpuscular Hemoglobin Concent 34.2 % Red Cell Distribution Width 14.1 % Platelet Count 180 TH/MM3 Mean Platelet Volume 8.6 FL Neutrophils (%) (Auto) 88.0 % Lymphocytes (%) (Auto) 9.8 % Monocytes (%) (Auto) 1.9 % Eosinophils (%) (Auto) 0.0 % Basophils (%) (Auto) 0.3 % Neutrophils # (Auto) 5.8 TH/MM3 Lymphocytes # (Auto) 0.6 TH/MM3 Monocytes # (Auto) 0.1 TH/MM3 Eosinophils # (Auto) 0.0 TH/MM3 Basophils # (Auto) 0.0 TH/MM3 CBC Comment DIFF FINAL Differential Comment Hematology Comments Prothrombin Time 11.0 SEC Prothromb Time International Ratio 1.1 RATIO Activated Partial Thromboplast Time 28.0 SEC Blood Urea Nitrogen 31 MG/DL Creatinine 1.46 MG/DL Random Glucose 148 MG/DL Total Protein 7.7 GM/DL Albumin 3.0 GM/DL Calcium Level 8.0 MG/DL Phosphorus Level 4.6 MG/DL Magnesium Level 2.3 MG/DL Alkaline Phosphatase 72 U/L Aspartate Amino Transf (AST/SGOT) 15 U/L Alanine Aminotransferase (ALT/SGPT) 21 U/L Total Bilirubin 0.4 MG/DL Sodium Level 136 MEQ/L Potassium Level 5.0 MEQ/L Chloride Level 101 MEQ/L Carbon Dioxide Level 24.3 MEQ/L Anion Gap 11 MEQ/L Estimat Glomerular Filtration Rate 48 ML/MIN Imaging Last Impressions Chest X-Ray 12/21/17 0000 Signed Impressions: Service Date/Time: Thursday, December 21, 2017 03:07 - CONCLUSION: No patchy non-consolidative infiltrates in the lower lateral right lung. Evangelist Blake MD Objective Remarks GENERAL: Awake alert oriented 3 talkative and cooperative some moderate shortness of breath still SKIN: Warm and dry. HEAD: Atraumatic. Normocephalic. EYES: Pupils equal and round. No scleral icterus. No injection or drainage. Extraocular muscles intact ENT: No nasal bleeding or discharge. Mucous membranes pink and moist. Oral mucosa is moist tongue is midline NECK: Trachea midline. No JVD. Supple CARDIOVASCULAR: Regular rate and rhythm. S1-S2 no S3 or S4 RESPIRATORY: No accessory muscle use. Coarse breath sounds bilaterally with rhonchi throughout-- breath sounds equal bilaterally. GASTROINTESTINAL: Abdomen soft, non-tender, nondistended. Hepatic and splenic margins not palpable. Obese MUSCULOSKELETAL: Extremities without clubbing, cyanosis, or edema. No obvious deformities. NEUROLOGICAL: Awake and alert. No obvious cranial nerve deficits. Motor grossly within normal limits. 4 out of 5 muscle strength in the arms and legs. Normal speech. PSYCHIATRIC: Appropriate mood and affect; insight and judgment limited. Procedures None Medications and IVs Current Medications Sodium Chloride (NS Flush) 2 ml UNSCH PRN IVF FLUSH AFTER USING IV ACCESS; Start 12/20/17 at 16:45; Stop 12/20/17 at 19:50; Status DC Albuterol/ Ipratropium (Duoneb Neb) 1 ampule Q15M INH Last administered on 12/20at 17:14; Start 12/20/17 at 16:45; Stop 12/20/17 at 17:16; Status DC Furosemide (Lasix Inj) 60 mg ONCE ONCE IV PUSH Last administered on 12/20/17at 17:16; Start 12/20/17 at 17:15; Stop 12/20/17 at 17:16; Status DC Aspirin (Aspirin) 325 mg DAILY PO Last administered on 12/21/17at 09:18; Start 12/21/17 at 09:00 Atorvastatin Calcium (Lipitor) 80 mg HS PO Last administered on 12/20/17at 22:23 ; Start 12/20/17 at 21:00 Carvedilol (Coreg) 6.25 mg BID PO Last administered on 12/21/17at 09:18; Start 12/20/17 at 21:00 Gabapentin (Neurontin) 300 mg BID PO Last administered on 12/21/17at 09:00; Start 12/20/17 at 21:00 Tamsulosin HCl (Flomax) 0.4 mg HS PO Last administered on 12/20/17at 22:23; Start 12/20/17 at 21:00 Tiotropium Jansen (Spiriva Inh) 18 mcg DAILY INH ; Start 12/21/17 at 09:00 Non-Formulary Medication 10 mg DAILY PO ; Start 12/21/17 at 09:00; Status UNV Non-Formulary Medication 0.5 mg DAILY PO ; Start 12/21/17 at 09:00; Status UNV Non-Formulary Medication 1 puff BID INH ; Start 12/20/17 at 21:00; Status UNV Sodium Chloride (NS Flush) 2 ml UNSCH PRN IV FLUSH FLUSH AFTER USING IV ACCESS ; Start 12/20/17 at 18:30 Sodium Chloride (NS Flush) 2 ml BID IV FLUSH Last administered on 12/21/17at 09: 00; Start 12/20/17 at 21:00 Acetaminophen (Tylenol) 650 mg Q6H PRN PO PAIN 1-5 AND/OR FEVER >101F; Start at 18:30 Morphine Sulfate (Morphine Inj) 2 mg Q2H PRN IV PAIN SCALE 6 TO 10; Start 12/20 at 20:00 Famotidine (Pepcid Inj) 20 mg Q12HR IV PUSH Last administered on 12/21/17at 09: 18; Start 12/20/17 at 21:00 Ondansetron HCl (Zofran Inj) 4 mg Q6H PRN IV PUSH NAUSEA OR VOMITING; Start at 18:30 Temazepam (Restoril) 15 mg HS PRN PO INSOMNIA Last administered on 12/21/17at 00 :56; Start 12/20/17 at 18:30 Albuterol/ Ipratropium (Duoneb Neb) 1 ampule Q4HR NEB INH Last administered on 12/21/17at 08:54; Start 12/20/17 at 20:00 Albuterol/ Ipratropium (Duoneb Neb) 1 ampule Q2HR NEB PRN INH WHEEZING Last administered on 12/21/17at 02:10; Start 12/20/17 at 18:30 Heparin Sodium (Porcine) (Heparin Inj) 5,000 units Q8H SQ Last administered on 12/21/17at 05:31; Start 12/20/17 at 20:00 Miscellaneous Information 1 Q361D XX Last administered on 12/20/17at 22:00; Start 12/20/17 at 18:30 Chlorhexidine Gluconate (Chlorhexidine 2% Cloth) 3 pack Taper DAILY@04 TOP Last administered on 12/21/17at 04:00; Start 12/21/17 at 04:00; Stop 12/17/18 at 03:59 Chlorhexidine Gluconate (Chlorhexidine 2% Cloth) 3 pack UNSCH PRN TOP HYGIENIC CARE; Start 12/20/17 at 18:30 Senna/Docusate Sodium (Cherrie-Colace) 1 tab BID PO Last administered on at 09:18; Start 12/20/17 at 21:00 Magnesium Hydroxide (Milk Of Magnesia Liq) 30 ml Q12H PRN PO Mild constipation ; Start 12/20/17 at 18:30 Sennosides (Senokot) 17.2 mg Q12H PRN PO Moderate constipation; Start 12/20/17 at 18:30 Bisacodyl (Dulcolax Supp) 10 mg DAILY PRN RECTAL SEVERE CONSITIPATION; Start at 18:30 Lactulose (Lactulose Liq) 30 ml DAILY PRN PO SEVERE CONSITIPATION; Start at 18:30 Methylprednisolone Sodium Succinate (SoluMEDROL INJ) 40 mg Q6HR IV PUSH Last administered on 12/21/17at 05:30; Start 12/21/17 at 00:00 Losartan Potassium (Cozaar) 100 mg DAILY PO Last administered on 12/21/17at 09: 00; Start 12/21/17 at 09:00 Furosemide (Lasix Inj) 20 mg Q6H IV PUSH Last administered on 12/21/17at 09:19; Start 12/20/17 at 20:00; Stop 12/22/17 at 02:01 Levofloxacin/ Dextrose 150 ml @ 100 mls/hr Q24H IV Last administered on at 21:07; Start 12/20/17 at 20:00 Budesonide/ Formoterol Fumarate (Symbicort 160-4.5 Mcg Inh) 1 puff BID INH ; Start 12/20/17 at 21:00 Finasteride (Proscar) 5 mg DAILY PO Last administered on 12/21/17at 09:18; Start 12/21/17 at 09:00 A/P Assessment and Plan Respiratory failure COPD exacerbation - DuoNeb scheduled and when necessary - IV steroids - Empiric antibiotics - Follow-up cultures and urine antigens - Pulmonary consultation Acute on chronic CHF - Rule out acute coronary syndrome - 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 Mina will be consulted - Series of troponins EKGs - Repeat 2-D echo - Continue aspirin - Losartan - Coreg - Hold spironolactone due to elevated potassium - IV Lasix Hypertension - Continue home meds Coreg and losartan Renal insufficiency - Unknown baseline creatinine - We'll monitor urine output and creatinine levels and electrolytes Hyperlipidemia -Continue on home statin DVT GI prophylaxis - Teds SCDs - Subcutaneous heparin - Pepcid Discharge Planning We will get physical therapy and occupational therapy to eval and treat and await clearance by pulmonary and cardiology Lei Ayala DO Dec 21, 2017 10:49
[2017-12-21] MEDS: guaiFENesin E.R. 600 MG TAB PO SCH ×2 (11:00→19:52)
--- NOTE | 2017-12-21 14:57 | EKG ---
Date Performed: 12/21/2017 Time Performed: 00:41:40 PTAGE: 67 years EKG: Sinus rhythm Nonspecific intraventricular conduction delay Lateral T wave changes are nonspecific Abnormal ECG PREVIOUS TRACING : 12/20/2017 17.20 No significant change from previous tracing noted. DOCTOR: Mickey Ruvalcaba Interpretating Date/Time 12/21/2017 14:55:40
--- NOTE | 2017-12-21 15:07 | PD.CONS ---
HPI Service Cardiology Consult Requested By Dr Painter Reason for Consult CHF Primary Care Physician Tree Hough MD History of Present Illness The patient is a 67 year old male known to our practice with a cardiac history of CMP, ASHD, , HTN, HLD, and smoker. Other notable history of COPD. The patient presented to the hospital via EMS for severe SOB. He had a two day history of progressively worsening SOB associated with cough since returning from a cruise. He admits to recently smoking cigarettes again after remaining smoke-free for the past 6 months. The patient denies CP, palpitations, lightheadedness or edema. On evaluation, he was noted to be hypoxic with SpO2 85 % while on 6 liters O2. ABG revealed acute hypercapnic respiratory acidosis. CXR revealed pulmonary edema. He was treated for CHF exacerbation and COPD exacerbation. Today, evaluation, he remains on BIPAP, but is more comfortable compared to yesterday. EKG while in the exam room reveals irregularly irregular rhythm consistent with MAT/WAP. BP is low. He is receiving aggressive diuresis and received losartan 100 mg this morning. Review of Systems Consitutional: DENIES: Fatigue, Fever, Chills, Weight gain, Weight loss Eyes: DENIES: Amaurosis Fugax, Change in vision HEENT: DENIES: Lightheadedness, Change in hearing Respiratory: COMPLAINS OF: Cough, Shortness of breath, Wheezing, DENIES: See HPI, Snoring, Sputum production Cardiovascular: DENIES: See HPI, Chest pain, Palpitations, Syncope, Tachycardia Gastrointestinal: DENIES: Nausea, Vomiting, Change in bowel habits, Reflux, Bloody stools, Melena Genitourinary: DENIES: Urinary incontinence, Difficulty voiding Integumentary: DENIES: Rash Neurologic: DENIES: Tingling or numbness, Memory problems, Poor Balance, Stroke symptoms Musculoskeletal: DENIES: Joint pain, Muscle pain, Limited range of motion, Back pain Psychiatric: DENIES: Anxiety, Depression, Sleep disturbances Hematologic: DENIES: Bruising tendencies, Bleeding tendencies Endocrine: DENIES: Weight gain, Weight loss, Thyroid disease Past Family Social History Allergies: Coded Allergies: No Known Allergies (Verified Allergy, Unknown, 12/20/17) Past Medical History ASHD CMP HLD HTN Smoker carotid stenosis mild to mod Mild MR BPH Past Surgical History Heart cath 2015, 2002, 1998 Reported Medications Reported Meds & Active Scripts Active Reported Proair Hfa 8.5 GM Inh (Albuterol Sulfate) 90 Mcg/Act Aer 2 Puff INH Q4-6H PRN 108 mcg/actuation Spironolactone 25 Mg Tab 25 Mg PO BIDPC Alfuzosin ER 24 HR 10 Mg Tab 10 Mg PO DAILY Tamsulosin (Tamsulosin HCl) 0.4 Mg Cap 0.4 Mg PO HS Spiriva Handihaler (Tiotropium Inh) 18 Mcg Cap 18 Mcg INH DAILY 1 capsule = 18 mcg Gabapentin 300 Mg Cap 300 Mg PO BID Dutasteride 0.5 Mg Cap 0.5 Mg PO DAILY Advair Diskus Inh (Fluticasone-Salmeterol Inh) 250-50 Mcg/Blist Aer 1 Puff INH BID Rinse mouth after use. Lipitor (Atorvastatin Calcium) 80 Mg Tab 80 Mg PO HS Losartan (Losartan Potassium) 100 Mg Tab 100 Mg PO DAILY Coreg (Carvedilol) 6.25 Mg Tab 6.25 Mg PO BID Aspirin 325 Mg Tab 325 Mg PO DAILY Active Ordered Medications Current Medications Medications (Trade) Dose Ordered Sig/Marielena Route Start Time Stop Time Status Last Admin (Aspirin) 325 mg DAILY PO 12/21/17 09:00 12/21/17 09:18 (Lipitor) 80 mg HS PO 12/20/17 21:00 12/20/17 22:23 (Coreg) 6.25 mg BID PO 12/20/17 21:00 12/21/17 09:18 (Neurontin) 300 mg BID PO 12/20/17 21:00 12/21/17 09:00 (Flomax) 0.4 mg HS PO 12/20/17 21:00 12/20/17 22:23 (Spiriva Inh) 18 mcg DAILY INH 12/21/17 09:00 (Tylenol) 650 mg Q6H PRN PO 12/20/17 18:30 (Morphine Inj) 2 mg Q2H PRN IV 12/20/17 20:00 (Pepcid Inj) 20 mg Q12HR IV PUSH 12/20/17 21:00 12/21/17 09:18 (Restoril) 15 mg HS PRN PO 12/20/17 18:30 12/21/17 00:56 (Duoneb Neb) 1 ampule Q4HR NEB INH 12/20/17 20:00 12/21/17 12:37 (Duoneb Neb) 1 ampule Q2HR NEB PRN INH 12/20/17 18:30 12/21/17 02:10 (Heparin Inj) 5,000 units Q8H SQ 12/20/17 20:00 12/21/17 12:00 Miscellaneous Information 1 Q361D XX 12/20/17 18:30 12/20/17 22:00 (Chlorhexidine 2% Cloth) 3 pack Taper DAILY@04 TOP 12/21/17 04:00 12/17/18 03:59 12/21/17 04:00 (Chlorhexidine 2% Cloth) 3 pack UNSCH PRN TOP 12/20/17 18:30 (SoluMEDROL INJ) 40 mg Q6HR IV PUSH 12/21/17 00:00 12/21/17 12:00 (Cozaar) 100 mg DAILY PO 12/21/17 09:00 12/21/17 09:00 (Lasix Inj) 20 mg Q6H IV PUSH 12/20/17 20:00 12/22/17 02:01 12/21/17 09:19 Levofloxacin/ Dextrose 150 ml @ 100 mls/hr Q24H IV 12/20/17 20:00 12/20/17 21:07 (Symbicort 160-4.5 Mcg Inh) 1 puff BID INH 12/20/17 21:00 (Proscar) 5 mg DAILY PO 12/21/17 09:00 12/21/17 09:18 (Mucinex Er) 600 mg BID PO 12/21/17 11:00 12/21/17 11:00 (Catapres) 0.1 mg Q4H PRN PO 12/21/17 10:45 (NS Flush) 2 ml UNSCH PRN IV FLUSH 12/21/17 10:45 (NS Flush) 2 ml BID IV FLUSH 12/21/17 21:00 (Zofran Inj) 4 mg Q6H PRN IVP 12/21/17 10:45 (Reglan Inj) 5 mg Q6H PRN IV PUSH 12/21/17 10:45 (Percocet 5-325 Mg) 1 tab Q6H PRN PO 12/21/17 10:45 (Percocet 10-325 Mg) 1 tab Q6H PRN PO 12/21/17 10:45 (Narcan Inj) 0.4 mg UNSCH PRN IV PUSH 12/21/17 10:45 (Cherrie-Colace) 1 tab BID PO 12/21/17 21:00 (Milk Of Magnesia Liq) 30 ml Q12H PRN PO 12/21/17 10:45 (Senokot) 17.2 mg Q12H PRN PO 12/21/17 10:45 (Dulcolax Supp) 10 mg DAILY PRN RECTAL 12/21/17 10:45 (Lactulose Liq) 30 ml DAILY PRN PO 12/21/17 10:45 Family History non contributory Social History Recently resumed smoking after quitting smoking about 6 months ago Physical Exam Vital Signs Vital Signs Date Time Temp Pulse Resp B/P (MAP) Pulse Ox O2 Delivery O2 Flow Rate FiO2 12/21/17 14:00 95 12/21/17 13:15 93 30 97 12/21/17 13:09 91 26 85/51 (62) 97 12/21/17 13:00 87 24 85/53 (64) 96 12/21/17 12:51 86 23 89/63 (72) 97 12/21/17 12:45 88 20 97 12/21/17 12:38 97 55 12/21/17 12:36 98 23 90/63 (72) 97 12/21/17 12:30 102 25 95 12/21/17 12:15 100 21 95 12/21/17 12:01 97 22 82/58 (66) 95 12/21/17 12:00 100 21 95 12/21/17 12:00 83 12/21/17 11:00 100 27 97/61 (73) 89 12/21/17 10:46 99 29 89 12/21/17 10:00 95 12/21/17 08:52 97 55 12/21/17 08:00 97.9 76 16 125/74 (91) 95 12/21/17 08:00 70 12/21/17 07:00 Bi-Pap 65 12/21/17 06:00 73 12/21/17 04:46 94 65 12/21/17 04:00 98.2 70 14 96/59 (71) 90 12/21/17 04:00 70 12/21/17 02:15 Bi-Pap 65 12/21/17 02:11 94 65 12/21/17 02:00 74 12/21/17 00:00 98.5 70 19 113/72 (86) 96 12/21/17 00:00 70 12/20/17 23:00 97 Bi-Pap 45 12/20/17 23:00 77 25 109/65 (80) 97 12/20/17 22:46 96 45 12/20/17 22:05 82 12/20/17 22:00 98 Partial Non-Rebreather 15.00 12/20/17 22:00 98.7 82 28 104/68 (80) 98 12/20/17 22:00 98 Partial Rebreather 15.00 12/20/17 21:09 87 20 113/66 (82) 92 BiPAP 12/20/17 19:00 97 50 12/20/17 18:16 92 23 119/75 (90) 95 BiPAP 50 12/20/17 17:19 99 CPAP 50 12/20/17 16:42 97.3 98 24 104/65 (78) 97 CPAP 100 12/20/17 16:42 97 CPAP 100 12/20/17 16:37 97 100 12/20/17 16:33 87 22 143/75 (97) 97 CPAP 100 12/20/17 16:32 87 96 CPAP 100 12/20/17 16:25 79 143/75 (97) 95 Physical Exam GENERAL: Middle aged male in ICU on BIPAP SKIN: Warm and dry. HEAD: Atraumatic. Normocephalic. EYES: Pupils equal and round. No scleral icterus. No injection or drainage. ENT: No nasal bleeding or discharge. Mucous membranes pink and moist. NECK: Trachea midline. CARDIOVASCULAR: Irreg irreg, tachycardia, murmur. RESPIRATORY: BIPAP, scattered rhonchi, I/E wheezing GASTROINTESTINAL: Abdomen soft, non-tender, nondistended. Obese MUSCULOSKELETAL: Extremities without clubbing, cyanosis, or edema. No obvious deformities. NEUROLOGICAL: Awake and alert. No obvious cranial nerve deficits. Normal speech. PSYCHIATRIC: Appropriate mood and affect; insight and judgment normal. Laboratory Laboratory Tests Test 12/20/17 16:30 12/20/17 22:30 12/21/17 02:15 12/21/17 05:29 White Blood Count 10.4 Red Blood Count 4.67 Hemoglobin 15.0 Hematocrit 44.7 Mean Corpuscular Volume 95.8 Mean Corpuscular Hemoglobin 32.2 Mean Corpuscular Hemoglobin Concent 33.6 Red Cell Distribution Width 14.8 Platelet Count 230 Mean Platelet Volume 8.5 Neutrophils (%) (Auto) 75.3 Lymphocytes (%) (Auto) 13.8 Monocytes (%) (Auto) 9.9 Eosinophils (%) (Auto) 0.4 Basophils (%) (Auto) 0.6 Neutrophils # (Auto) 7.8 Lymphocytes # (Auto) 1.4 Monocytes # (Auto) 1.0 Eosinophils # (Auto) 0.0 Basophils # (Auto) 0.1 CBC Comment DIFF FINAL Differential Comment Blood Urea Nitrogen 27 35 Creatinine 1.36 1.48 Random Glucose 117 154 Calcium Level 8.8 8.3 Sodium Level 138 138 Potassium Level 5.2 5.0 Chloride Level 104 101 Carbon Dioxide Level 24.6 27.6 Anion Gap 9 9 Estimat Glomerular Filtration Rate 52 47 Troponin I LESS THAN 0.02 LESS THAN 0.02 Nasal Screen MRSA (PCR) MRSA NOT DETECTED Total Protein 7.7 Albumin 3.3 Phosphorus Level 4.8 Magnesium Level 2.2 Alkaline Phosphatase 73 Aspartate Amino Transf (AST/SGOT) 14 Alanine Aminotransferase (ALT/SGPT) 21 Total Bilirubin 0.4 Blood Gas Puncture Site RT RADIAL Blood Gas Patient Temperature 98.6 Blood Gas HCO3 26 Blood Gas Base Excess 0.7 Blood Gas Oxygen Saturation 96 Arterial Blood pH 7.30 Arterial Blood Partial Pressure CO2 55 Arterial Blood Partial Pressure O2 138 Arterial Blood Oxygen Content 19.7 Arterial Blood Carboxyhemoglobin 0.3 Arterial Blood Methemoglobin 1.6 Blood Gas Hemoglobin 14.4 Oxygen Delivery Device BIPAP Blood Gas Ventilator Setting 10/5 Blood Gas Inspired Oxygen 65 Test 12/21/17 06:40 White Blood Count 6.6 Red Blood Count 4.49 Hemoglobin 14.6 Hematocrit 42.7 Mean Corpuscular Volume 95.2 Mean Corpuscular Hemoglobin 32.6 Mean Corpuscular Hemoglobin Concent 34.2 Red Cell Distribution Width 14.1 Platelet Count 180 Mean Platelet Volume 8.6 Neutrophils (%) (Auto) 88.0 Lymphocytes (%) (Auto) 9.8 Monocytes (%) (Auto) 1.9 Eosinophils (%) (Auto) 0.0 Basophils (%) (Auto) 0.3 Neutrophils # (Auto) 5.8 Lymphocytes # (Auto) 0.6 Monocytes # (Auto) 0.1 Eosinophils # (Auto) 0.0 Basophils # (Auto) 0.0 CBC Comment DIFF FINAL Differential Comment Hematology Comments Prothrombin Time 11.0 Prothromb Time International Ratio 1.1 Activated Partial Thromboplast Time 28.0 Blood Urea Nitrogen 31 Creatinine 1.46 Random Glucose 148 Total Protein 7.7 Albumin 3.0 Calcium Level 8.0 Phosphorus Level 4.6 Magnesium Level 2.3 Alkaline Phosphatase 72 Aspartate Amino Transf (AST/SGOT) 15 Alanine Aminotransferase (ALT/SGPT) 21 Total Bilirubin 0.4 Sodium Level 136 Potassium Level 5.0 Chloride Level 101 Carbon Dioxide Level 24.3 Anion Gap 11 Estimat Glomerular Filtration Rate 48 Date/Time Source Procedure Growth Status 12/20/17 23:00 Urine Random Urine Legionella Antigen - Final PRESUMPTIVE NEGATIVE FOR LEGIONELLA P... Complete 12/20/17 23:00 Urine Random Urine Streptococcus pneumoniae Antigen (M - Final PRESUMPTIVE NEGATIVE FOR STREPTOCOCCU... Complete Result Diagram: 12/21/17 0640 12/21/17 0640 Imaging Last 72 hours Impressions Chest X-Ray 12/21/17 0000 Signed Impressions: Service Date/Time: Thursday, December 21, 2017 03:07 - CONCLUSION: No patchy non-consolidative infiltrates in the lower lateral right lung. Evangelist Blake MD Chest X-Ray 12/20/17 1637 Signed Impressions: Service Date/Time: Wednesday, December 20, 2017 16:42 - CONCLUSION: Cardiomegaly with probable mild/moderate congestive failure Moderate artifact from respiration. 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 He did not tolerate Aldactone in the past due to breast tenderness Decrease losartan Pending echo Pulmonary following The patient was seen and evaluated by Dr Mina who completed face to face encounter, physical exam and participated in evaluation and management. Lakshmi Logan Dec 21, 2017 15:07
--- NOTE | 2017-12-21 15:53 | EKG ---
Date Performed: 12/20/2017 Time Performed: 17:20:57 PTAGE: 67 years EKG: Sinus rhythm NONSPECIFIC INTRAVENTRICULAR CONDUCTION DELAY NONSPECIFIC ST/T CHANGES BORDERLINE ECG PREVIOUS TRACING : 09/18/2016 11.12 No significant change from previous tracing noted. DOCTOR: Mickey Ruvalcaba Interpretating Date/Time 12/21/2017 15:52:11
--- NOTE | 2017-12-21 18:11 | ECHRPT ---
Indication: HEART FAILURE CONCLUSIONS Mildly dilated left ventricle. Mild concentric left ventricular hypertrophy. The left ventricular systolic function is grossly normal on limited imaging. The left ventricular systolic function is low normal with an estimated ejection fraction in the rang e of 50- 55%. . BP: 125 / 74 HR: 70 Rhythm: Sinus MEASUREMENTS (Male / Female) Normal Values Technical Quality:Very technically difficult study 2D ECHO LV Diastolic Diameter PLAX 5.8 cm 4.2 - 5.9 / 3.9 - 5.3 cm LV Systolic Diameter PLAX 3.5 cm IVS Diastolic Thickness 1.3 cm 0.6 - 1.0 / 0.6 - 0.9 cm LVPW Diastolic Thickness 1.3 cm 0.6 - 1.0 / 0.6 - 0.9 cm LV Relative Wall Thickness 0.5 RV Internal Dim ED PLAX 1.9 cm LVOT Diameter 2.2 cm Aortic Root Diameter 2.9 cm LA Systolic Diameter LX 3.6 cm 3.0 - 4.0 / 2.7 - 3.8 cm M-MODE AV Cusp Separation MM 1.6 cm FINDINGS LEFT VENTRICLE Mildly dilated left ventricle. Mild concentric left ventricular hypertrophy. The left ventricular systolic function is grossly normal on limited imaging. The left ventricular systolic function is low normal with an estimated ejection fraction in the rang e of 50- 55%. RIGHT VENTRICLE Normal right ventricular size and systolic function. LEFT ATRIUM The left atrial size is normal. RIGHT ATRIUM The right atrial size is normal. ATRIAL SEPTUM Normal atrial septal thickness without atrial level shunting by limited color doppler interrogation. AORTA The aortic root and proximal ascending aorta are normal in size on limited imaging. MITRAL VALVE Structurally normal mitral valve. No mitral valve stenosis or regurgitation. AORTIC VALVE Trileaflet aortic valve. No aortic valve stenosis or regurgitation. TRICUSPID VALVE Structurally normal tricuspid valve. No tricuspid valve stenosis or regurgitation. PULMONARY VALVE The pulmonary valve is not well visualized. VESSELS The inferior vena cava is normal in size. PERICARDIUM No pericardial effusion. Yaakov Pettit MD, FACC (Electronically Signed) Final Date:21 December 2017 18:10
--- NOTE | 2017-12-21 18:55 | HHI.PR ---
Subjective Remarks 67 YOMorbidly obese male with RF,COPD exac Using BIPAP, requiring high Fi02, 55% Up in chair BP Borderline Desaturates with any Activity Objective Vital Signs Vital Signs Date Time Temp Pulse Resp B/P (MAP) Pulse Ox O2 Delivery O2 Flow Rate FiO2 12/21/17 18:00 95 12/21/17 16:21 95 BiPAP 55 12/21/17 16:15 84 36 91 12/21/17 16:14 93 55 12/21/17 16:01 84 31 105/63 (77) 90 12/21/17 16:00 84 36 90 12/21/17 16:00 95 12/21/17 14:46 98.0 90 31 91/58 (69) 95 12/21/17 14:00 95 12/21/17 13:15 93 30 97 12/21/17 13:09 91 26 85/51 (62) 97 12/21/17 13:00 87 24 85/53 (64) 96 12/21/17 12:51 86 23 89/63 (72) 97 12/21/17 12:45 88 20 97 12/21/17 12:38 97 55 12/21/17 12:36 98 23 90/63 (72) 97 12/21/17 12:30 102 25 95 12/21/17 12:15 100 21 95 12/21/17 12:01 97 22 82/58 (66) 95 12/21/17 12:00 100 21 95 12/21/17 12:00 83 12/21/17 11:00 100 27 97/61 (73) 89 12/21/17 10:46 99 29 89 12/21/17 10:00 95 12/21/17 08:52 97 55 12/21/17 08:00 97.9 76 16 125/74 (91) 95 12/21/17 08:00 70 12/21/17 07:00 Bi-Pap 65 12/21/17 06:00 73 12/21/17 04:46 94 65 12/21/17 04:00 98.2 70 14 96/59 (71) 90 12/21/17 04:00 70 12/21/17 02:15 Bi-Pap 65 12/21/17 02:11 94 65 12/21/17 02:00 74 12/21/17 00:00 98.5 70 19 113/72 (86) 96 12/21/17 00:00 70 12/20/17 23:00 97 Bi-Pap 45 12/20/17 23:00 77 25 109/65 (80) 97 12/20/17 22:46 96 45 12/20/17 22:05 82 12/20/17 22:00 98 Partial Non-Rebreather 15.00 12/20/17 22:00 98.7 82 28 104/68 (80) 98 12/20/17 22:00 98 Partial Rebreather 15.00 12/20/17 21:09 87 20 113/66 (82) 92 BiPAP 12/20/17 19:00 97 50 I/O 12/20/17 12/20/17 12/20/17 12/21/17 12/21/17 12/21/17 07:00 15:00 23:00 07:00 15:00 23:00 Intake Total 330 ml Output Total 550 ml 600 ml Balance -550 ml -270 ml Intake Oral 180 ml IV Total 150 ml Output Urine Total 550 ml 600 ml # Voids 1 2 Result Diagram: 12/21/17 0640 12/21/17 0640 Objective Remarks GENERAL: Morbidly obese WM, sob SKIN: Warm and dry. HEAD: Normocephalic. EYES: No scleral icterus. No injection or drainage. NECK: Supple, trachea midline. No JVD or lymphadenopathy. CARDIOVASCULAR: Regular rate and rhythm without murmurs, gallops, or rubs. RESPIRATORY: Breath sounds equal bilaterally. No accessory muscle use. GASTROINTESTINAL: Abdomen soft, non-tender, nondistended. MUSCULOSKELETAL: No cyanosis, or edema. BACK: Nontender without obvious deformity. No CVA tenderness. A/P Assessment and Plan IMPRESSION: 1. Respiratory failure. 2. Chronic obstructive pulmonary disease exacerbation. 3. Obstructive sleep apnea. 4. Bronchitis. 5. Hypertension. 6. Coronary artery disease. 7. Morbid obesity. PLAN: Cont BIPAP Wean Fi02 to keep sat 88-92% IV Solumedrol Cont Levaquin Aerosol nebs Symbicort 2 puffs bid SQ Heparin. Homero López MD Dec 21, 2017 18:55
[2017-12-21] MEDS: LEVOFLOXACIN 750 MG PREMIX INJ 150 ML IV SCH (19:51)
[2017-12-21] MEDS: ATORVASTATIN 80 MG TAB PO SCH (19:52)
[2017-12-21] MEDS: TAMSULOSIN HCL 0.4 MG CAP PO SCH (19:52)
[2017-12-22] VITALS (20 sets, daily range): BP systolic 91–115; BP diastolic 54–73; PULSE 61–103; RESP 12–29; TEMP 97–98; O2SAT 87–98
[2017-12-22] MEDS: RESP: ALBUTEROL 2.5 MG/IPRATROPIUM 0.5 MG NEB (SCH) INH ×6 (00:54→20:37)
[2017-12-22] MEDS: FUROSEMIDE 20 MG/2 ML VIAL IV PUSH SCH (01:05)
[2017-12-22] MEDS: methylPREDNISolone SOD SUCC 40 MG/1 ML VIAL IV PUSH SCH ×4 (01:05→16:57)
[2017-12-22] MEDS: CHLORHEXIDINE GLUCONATE 2 % 1 PACK (2 CLOTHS) TOP SCH (04:00)
[2017-12-22] MEDS: HEPARIN SODIUM - SQ 10,000 UNITS/ML VIAL SQ SCH ×3 (06:10→20:02)
[2017-12-22 08:06] LABS: AUTOMATED NEUTROPHIL # 13.9 TH/MM3 (1.8-7.7); BASOPHIL % 0.2 % (0.0-2.0); HEMATOCRIT 43.7 % (39.0-51.0); HEMOGLOBIN 14.6 GM/DL (13.0-17.0); LYMPH % 5.7 % (9.0-44.0); LYMPHOCYTE # 0.9 TH/MM3 (1.0-4.8); MEAN CORPUSCULAR HEMOGLOBIN 32.1 PG (27.0-34.0); MEAN CORPUSCULAR HGB CONC 33.4 % (32.0-36.0); MEAN PLATELET VOLUME 8.4 FL (7.0-11.0); MONO % 3.6 % (0.0-8.0); MONOCYTE # 0.6 TH/MM3 (0-0.9); NEUT % 90.5 % (16.0-70.0); PLATELET COUNT 237 TH/MM3 (150-450); RED BLOOD COUNT 4.55 MIL/MM3 (4.50-5.90); RED CELL DISTRIBUTION WIDTH 14.4 % (11.6-17.2); WHITE BLOOD COUNT 15.4 TH/MM3 (4.0-11.0)
[2017-12-22 08:39] LABS: ALBUMIN 3.1 GM/DL (3.4-5.0); ALT (GPT) 18 U/L (12-78); AST (GOT) 14 U/L (15-37); BICARBONATE 25.4 MEQ/L (21.0-32.0); BLOOD UREA NITROGEN 56 MG/DL (7-18); CALCIUM 8.5 MG/DL (8.5-10.1); CHLORIDE 99 MEQ/L (98-107); CREATININE 1.75 MG/DL (0.60-1.30); GLOMERULAR FILTRATION RATE 39 ML/MIN (>89); GLUCOSE,RANDOM 149 MG/DL (74-106); MAGNESIUM 2.5 MG/DL (1.5-2.5); SODIUM (NA) 135 MEQ/L (136-145)
[2017-12-22] MEDS: LOSARTAN 50 MG TAB PO SCH (09:00)
[2017-12-22] MEDS: BUDESONIDE-FORMOTEROL 160/4.5 MCG INHALER INH SCH ×2 (09:00→20:03)
[2017-12-22] MEDS: FAMOTIDINE 20 MG/2 ML VIAL IV PUSH SCH ×2 (09:00→20:06)
[2017-12-22] MEDS: TIOTROPIUM BROMIDE 18 MCG INH INH SCH (09:00)
[2017-12-22] MEDS: FINASTERIDE 5 MG TAB PO SCH (09:00)
[2017-12-22] MEDS: ASPIRIN 325 MG TAB PO SCH (09:00)
[2017-12-22] MEDS: SODIUM CHLORIDE 0.9% FLUSH 10 ML FLUSH IV FLUSH SCH ×2 (09:00→20:04)
[2017-12-22] MEDS: guaiFENesin E.R. 600 MG TAB PO SCH ×2 (09:00→20:08)
[2017-12-22] MEDS: DOCUSATE SODIUM 50 MG/SENNA 8.6 MG TAB PO SCH ×2 (09:00→20:07)
[2017-12-22] MEDS: GABAPENTIN 300 MG CAP PO SCH ×2 (09:00→20:08)
[2017-12-22] MEDS: CARVEDILOL 6.25 MG TAB PO SCH ×2 (09:00→20:07)
[2017-12-22 09:05] LABS: ALKALINE PHOSPHATASE 71 U/L (45-117); TOTAL BILIRUBIN ADULT 0.3 MG/DL (0.2-1.0); TOTAL PROTEIN 7.8 GM/DL (6.4-8.2)
--- NOTE | 2017-12-22 10:06 | PD.CARD.PN ---
Subjective Subjective Remarks The patient is breathing easier, but is not back to baseline. He feels better while on BIPAP, but is tolerating 6 liters NC. BP remains marginally low and HR elevated. WBC elevated due to steroids. Does not appear septic/ill. Renal function is elevated. Objective Medications Current Medications Medications (Trade) Dose Ordered Sig/Marielena Route Start Time Stop Time Status Last Admin (Aspirin) 325 mg DAILY PO 12/21/17 09:00 12/21/17 09:18 (Lipitor) 80 mg HS PO 12/20/17 21:00 12/21/17 19:52 (Coreg) 6.25 mg BID PO 12/20/17 21:00 12/21/17 19:52 (Neurontin) 300 mg BID PO 12/20/17 21:00 12/21/17 19:53 (Flomax) 0.4 mg HS PO 12/20/17 21:00 12/21/17 19:52 (Spiriva Inh) 18 mcg DAILY INH 12/21/17 09:00 (Tylenol) 650 mg Q6H PRN PO 12/20/17 18:30 (Morphine Inj) 2 mg Q2H PRN IV 12/20/17 20:00 (Pepcid Inj) 20 mg Q12HR IV PUSH 12/20/17 21:00 12/21/17 19:51 (Restoril) 15 mg HS PRN PO 12/20/17 18:30 12/21/17 21:46 (Duoneb Neb) 1 ampule Q4HR NEB INH 12/20/17 20:00 12/22/17 04:19 (Duoneb Neb) 1 ampule Q2HR NEB PRN INH 12/20/17 18:30 12/21/17 02:10 (Heparin Inj) 5,000 units Q8H SQ 12/20/17 20:00 12/22/17 06:10 Miscellaneous Information 1 Q361D XX 12/20/17 18:30 12/20/17 22:00 (Chlorhexidine 2% Cloth) 3 pack Taper DAILY@04 TOP 12/21/17 04:00 12/17/18 03:59 12/22/17 04:00 (Chlorhexidine 2% Cloth) 3 pack UNSCH PRN TOP 12/20/17 18:30 (SoluMEDROL INJ) 40 mg Q6HR IV PUSH 12/21/17 00:00 12/22/17 06:10 (Cozaar) 100 mg DAILY PO 12/21/17 09:00 12/21/17 09:00 Levofloxacin/ Dextrose 150 ml @ 100 mls/hr Q24H IV 12/20/17 20:00 12/21/17 19:51 (Symbicort 160-4.5 Mcg Inh) 1 puff BID INH 12/20/17 21:00 12/21/17 19:53 (Proscar) 5 mg DAILY PO 12/21/17 09:00 12/21/17 09:18 (Mucinex Er) 600 mg BID PO 12/21/17 11:00 12/21/17 19:52 (Catapres) 0.1 mg Q4H PRN PO 12/21/17 10:45 (NS Flush) 2 ml UNSCH PRN IV FLUSH 12/21/17 10:45 (NS Flush) 2 ml BID IV FLUSH 12/21/17 21:00 12/21/17 19:51 (Zofran Inj) 4 mg Q6H PRN IVP 12/21/17 10:45 (Reglan Inj) 5 mg Q6H PRN IV PUSH 12/21/17 10:45 (Percocet 5-325 Mg) 1 tab Q6H PRN PO 12/21/17 10:45 (Percocet 10-325 Mg) 1 tab Q6H PRN PO 12/21/17 10:45 (Narcan Inj) 0.4 mg UNSCH PRN IV PUSH 12/21/17 10:45 (Cherrie-Colace) 1 tab BID PO 12/21/17 21:00 12/21/17 19:52 (Milk Of Magnesia Liq) 30 ml Q12H PRN PO 12/21/17 10:45 (Senokot) 17.2 mg Q12H PRN PO 12/21/17 10:45 (Dulcolax Supp) 10 mg DAILY PRN RECTAL 12/21/17 10:45 (Lactulose Liq) 30 ml DAILY PRN PO 12/21/17 10:45 Vital Signs / I&O Vital Signs Date Time Temp Pulse Resp B/P (MAP) Pulse Ox O2 Delivery O2 Flow Rate FiO2 12/22/17 09:00 82 25 95 12/22/17 08:45 97 55 12/22/17 08:30 73 23 99/54 (69) 94 12/22/17 08:00 64 12/22/17 08:00 98.0 65 16 96/54 (68) 96 12/22/17 07:00 94 Bi-Pap 55 12/22/17 06:00 61 12/22/17 04:19 97 55 12/22/17 04:00 97.0 64 12 91/55 (67) 93 12/22/17 04:00 64 12/22/17 02:00 67 12/22/17 00:54 98 BiPAP 55 12/22/17 00:54 96 55 12/22/17 00:00 97.4 74 13 102/68 (79) 93 12/22/17 00:00 74 12/21/17 22:00 92 12/21/17 20:18 96 55 12/21/17 20:15 94 Bi-Pap 55 12/21/17 20:00 97.7 96 28 104/66 (79) 91 12/21/17 20:00 96 12/21/17 19:00 91 Venturi Mask 6.00 50 12/21/17 18:46 87 41 101/63 (76) 96 12/21/17 18:00 95 12/21/17 16:21 95 BiPAP 55 12/21/17 16:15 84 36 91 18 16:14 93 55 12/21/17 16:01 84 31 105/63 (77) 90 12/21/17 16:00 84 36 90 12/21/17 16:00 95 12/21/17 14:46 98.0 90 31 91/58 (69) 95 18 14:00 95 12/21/17 13:15 93 30 97 18 13:09 91 26 85/51 (62) 97 18 13:00 87 24 85/53 (64) 96 18 12:51 86 23 89/63 (72) 97 12/21/18 12:45 88 20 97 18 12:38 97 55 18 12:36 98 23 90/63 (72) 97 18 12:30 102 25 95 18 12:15 100 21 95 12/21/17 12:01 97 22 82/58 (66) 95 12/21/17 12:00 100 21 95 12/21/17 12:00 83 12/21/17 11:00 100 27 97/61 (73) 89 12/21/17 10:46 99 29 89 I/O 12/21/17 12/21/17 12/21/17 12/22/17 12/22/17 12/22/17 07:00 15:00 23:00 07:00 15:00 23:00 Intake Total 330 ml 570 ml 720 ml Output Total 600 ml 750 ml 1050 ml Balance -270 ml -180 ml -330 ml Intake Oral 180 ml 420 ml 720 ml IV Total 150 ml 150 ml Output Urine Total 600 ml 750 ml 1050 ml # Voids 2 2 3 # Bowel Movements 1 Physical Exam GENERAL: Obese, middle age male in ICU SKIN: Warm and dry. HEAD: Normocephalic. EYES: No scleral icterus. No injection or drainage. NECK: Supple, trachea midline. CARDIOVASCULAR: Irreg irreg ,tachycardia. RESPIRATORY: Breath sounds equal bilaterally. Prolonged expiratory phase, no wheezing or rales. On NC GASTROINTESTINAL: Abdomen soft, non-tender, nondistended. MUSCULOSKELETAL: No cyanosis, or edema. BACK: Nontender without obvious deformity. No CVA tenderness. Laboratory Laboratory Tests Test 12/22/17 06:22 White Blood Count 15.4 TH/MM3 Red Blood Count 4.55 MIL/MM3 Hemoglobin 14.6 GM/DL Hematocrit 43.7 % Mean Corpuscular Volume 96.0 FL Mean Corpuscular Hemoglobin 32.1 PG Mean Corpuscular Hemoglobin Concent 33.4 % Red Cell Distribution Width 14.4 % Platelet Count 237 TH/MM3 Mean Platelet Volume 8.4 FL Neutrophils (%) (Auto) 90.5 % Lymphocytes (%) (Auto) 5.7 % Monocytes (%) (Auto) 3.6 % Eosinophils (%) (Auto) 0.0 % Basophils (%) (Auto) 0.2 % Neutrophils # (Auto) 13.9 TH/MM3 Lymphocytes # (Auto) 0.9 TH/MM3 Monocytes # (Auto) 0.6 TH/MM3 Eosinophils # (Auto) 0.0 TH/MM3 Basophils # (Auto) 0.0 TH/MM3 CBC Comment DIFF FINAL Differential Comment Blood Urea Nitrogen 56 MG/DL Creatinine 1.75 MG/DL Random Glucose 149 MG/DL Total Protein 7.8 GM/DL Albumin 3.1 GM/DL Calcium Level 8.5 MG/DL Phosphorus Level 5.0 MG/DL Magnesium Level 2.5 MG/DL Alkaline Phosphatase 71 U/L Aspartate Amino Transf (AST/SGOT) 14 U/L Alanine Aminotransferase (ALT/SGPT) 18 U/L Total Bilirubin 0.3 MG/DL Sodium Level 135 MEQ/L Potassium Level 5.0 MEQ/L Chloride Level 99 MEQ/L Carbon Dioxide Level 25.4 MEQ/L Anion Gap 11 MEQ/L Estimat Glomerular Filtration Rate 39 ML/MIN Free Thyroxine 0.90 NG/DL Thyroid Stimulating Hormone 3rd Gen 0.723 uIU/ML Imaging Last 72 hours Impressions Chest X-Ray 12/21/17 0000 Signed Impressions: Service Date/Time: Thursday, December 21, 2017 03:07 - CONCLUSION: No patchy non-consolidative infiltrates in the lower lateral right lung. Evangelist Blake MD Chest X-Ray 12/20/17 1637 Signed Impressions: Service Date/Time: Wednesday, December 20, 2017 16:42 - CONCLUSION: Cardiomegaly with probable mild/moderate congestive failure Moderate artifact from respiration. Lei Lomax MD FACR Assessment and Plan Assessment and Plan Resolving acute on chronic systolic CHF exacerbation Acute COPD exacerbation Irreg Irreg heart rhythm c/w MAT/WAP History of ischemic CMP. EF currently 50-55% HTN, BP now low Carotid stenosis Smoker LISE leukocytosis due to steroids PLAN: Hold diuretic and losartan today Check 12 lead EKG Pulmonary following The patient was seen and evaluated by Dr Mina who completed face to face encounter, physical exam and participated in evaluation and management. Lakshmi Logan Dec 22, 2017 10:06
--- NOTE | 2017-12-22 15:16 | HHI.PR ---
Subjective Remarks 67-year-old male who presented with COPD exacerbation dependent on BiPAP. He states he is comfortable with his breathing but remains on BiPAP. No other complaints Objective Vitals Vital Signs Date Time Temp Pulse Resp B/P (MAP) Pulse Ox O2 Delivery O2 Flow Rate FiO2 12/22/17 11:54 90 Nasal Cannula 6.00 12/22/17 10:00 78 12/22/17 09:00 82 25 95 12/22/17 08:45 97 55 12/22/17 08:30 73 23 99/54 (69) 94 12/22/17 08:00 64 12/22/17 08:00 98.0 65 16 96/54 (68) 96 12/22/17 07:00 94 Bi-Pap 55 12/22/17 06:00 61 12/22/17 04:19 97 55 12/22/17 04:00 97.0 64 12 91/55 (67) 93 12/22/17 04:00 64 12/22/17 02:00 67 12/22/17 00:54 98 BiPAP 55 12/22/17 00:54 96 55 12/22/17 00:00 97.4 74 13 102/68 (79) 93 12/22/17 00:00 74 12/21/17 22:00 92 12/21/17 20:18 96 55 12/21/17 20:15 94 Bi-Pap 55 12/21/17 20:00 97.7 96 28 104/66 (79) 91 12/21/17 20:00 96 12/21/17 19:00 91 Venturi Mask 6.00 50 12/21/17 18:46 87 41 101/63 (76) 96 12/21/17 18:00 95 12/21/17 16:21 95 BiPAP 55 12/21/17 16:15 84 36 91 12/21/17 16:14 93 55 12/21/17 16:01 84 31 105/63 (77) 90 12/21/17 16:00 84 36 90 12/21/17 16:00 95 I/O 12/21/17 12/21/17 12/21/17 12/22/17 12/22/17 12/22/17 07:00 15:00 23:00 07:00 15:00 23:00 Intake Total 330 ml 570 ml 720 ml Output Total 600 ml 750 ml 1050 ml Balance -270 ml -180 ml -330 ml Intake Oral 180 ml 420 ml 720 ml IV Total 150 ml 150 ml Output Urine Total 600 ml 750 ml 1050 ml # Voids 2 2 3 # Bowel Movements 1 Result Diagram: 12/22/17 0622 12/22/17 0622 Imaging Last Impressions Chest X-Ray 12/21/17 0000 Signed Impressions: Service Date/Time: Thursday, December 21, 2017 03:07 - CONCLUSION: No patchy non-consolidative infiltrates in the lower lateral right lung. Evangelist Blake MD Objective Remarks GENERAL: Obese patient. SKIN: Warm and dry. HEAD: Normocephalic. EYES: No scleral icterus. No injection or drainage. NECK: Supple, trachea midline. No JVD or lymphadenopathy. CARDIOVASCULAR: Regular rate and rhythm without murmurs, gallops, or rubs. RESPIRATORY: Rhonchi and coarse breath sounds with scattered wheezing throughout bilateral lung pino, air passage is adequate. GASTROINTESTINAL: Abdomen soft, non-tender, nondistended. EXTREMITIES: No cyanosis, or edema. NEUROLOGICAL: Awake, alert, and oriented x 3. Non-focal. Procedures None A/P Problem List: (1) COPD with acute exacerbation ICD Code: J44.1 - Chronic obstructive pulmonary disease with (acute) exacerbation Status: Acute (2) Acute respiratory failure with hypoxia ICD Code: J96.01 - Acute respiratory failure with hypoxia Status: Acute Assessment and Plan COPD exacerbation with respiratory failure Patient is currently stable, weaning from BiPAP Continue with standard therapy of steroids, antibiotics, duo nebs, Symbicort Consider transfer if stable on nasal cannula oxygen and no longer needing BiPAP to maintain oxygen above 90 Bronchitis Either bronchitis or recent resumption of cigarette smoking triggered his exacerbation Continue with IV Levaquin Recommend smoking cessation Hypertension Continue with home meds DVT prophylaxis Heparin Keenan Acuña MD Dec 22, 2017 15:16
[2017-12-22 18:11] LABS: HEMOGLOBIN A1C 6.1 % (4.3-6.0)
--- NOTE | 2017-12-22 20:01 | EKG ---
Date Performed: 12/22/2017 Time Performed: 10:36:20 PTAGE: 67 years EKG: ECTOPIC ATRIAL RHYTHM WITH OCCASIONAL SUPRAVENTRICULAR PREMATURE COMPLEXES MODERATE INTRAVE NTRICULAR CONDUCTION DELAY ABNORMAL ECG PREVIOUS TRACING : 12/21/2017 00.41 Since the previous tracing, no significant change noted DOCTOR: Philippe Red Interpretating Date/Time 12/22/2017 20:00:46
[2017-12-22] MEDS: LEVOFLOXACIN 750 MG PREMIX INJ 150 ML IV SCH (20:02)
[2017-12-22] MEDS: ATORVASTATIN 80 MG TAB PO SCH (20:08)
[2017-12-22] MEDS: TAMSULOSIN HCL 0.4 MG CAP PO SCH (20:09)
[2017-12-22] MEDS: TEMAZEPAM 15 MG CAP PO PRN (21:08)
[2017-12-23] VITALS (25 sets, daily range): BP systolic 90–135; BP diastolic 52–86; PULSE 68–104; RESP 13–34; TEMP 97.2–98.7; O2SAT 90–100
[2017-12-23] MEDS: RESP: ALBUTEROL 2.5 MG/IPRATROPIUM 0.5 MG NEB (SCH) INH ×7 (00:09→23:35)
[2017-12-23] MEDS: methylPREDNISolone SOD SUCC 40 MG/1 ML VIAL IV PUSH SCH ×5 (00:21→23:53)
[2017-12-23] MEDS: CHLORHEXIDINE GLUCONATE 2 % 1 PACK (2 CLOTHS) TOP SCH (04:00)
[2017-12-23] MEDS: HEPARIN SODIUM - SQ 10,000 UNITS/ML VIAL SQ SCH ×3 (05:04→19:47)
[2017-12-23] MEDS: ASPIRIN 325 MG TAB PO SCH (08:18)
[2017-12-23] MEDS: BUDESONIDE-FORMOTEROL 160/4.5 MCG INHALER INH SCH ×2 (08:18→19:45)
[2017-12-23] MEDS: FAMOTIDINE 20 MG/2 ML VIAL IV PUSH SCH ×2 (08:18→19:47)
[2017-12-23] MEDS: SODIUM CHLORIDE 0.9% FLUSH 10 ML FLUSH IV FLUSH SCH ×2 (08:18→19:47)
[2017-12-23] MEDS: SODIUM CHLORIDE 0.9% FLUSH 10 ML FLUSH IV FLUSH PRN (08:18)
[2017-12-23] MEDS: TIOTROPIUM BROMIDE 18 MCG INH INH SCH (08:19)
[2017-12-23] MEDS: FINASTERIDE 5 MG TAB PO SCH (08:19)
[2017-12-23] MEDS: GABAPENTIN 300 MG CAP PO SCH ×2 (08:19→19:47)
[2017-12-23] MEDS: CARVEDILOL 6.25 MG TAB PO SCH ×2 (08:19→19:47)
[2017-12-23] MEDS: LOSARTAN 50 MG TAB PO SCH (08:19)
[2017-12-23] MEDS: guaiFENesin E.R. 600 MG TAB PO SCH ×2 (08:19→19:47)
[2017-12-23] MEDS: DOCUSATE SODIUM 50 MG/SENNA 8.6 MG TAB PO SCH ×2 (08:19→19:47)
--- NOTE | 2017-12-23 09:45 | PD.CARD.PN ---
Subjective Subjective Remarks The patient is breathing easier this morning sitting on side of bed he reports feeling better. Currently on 4 L nasal cannula. He denies any chest pain palpitations or edema. Continues to have some shortness of breath which has improved. Blood pressure continues to be low he denies any dizziness. No fevers or chills (Shadeed,Vilma Nieto CAROLYN) Objective Medications Current Medications Medications (Trade) Dose Ordered Sig/Marielena Route Start Time Stop Time Status Last Admin (Aspirin) 325 mg DAILY PO 12/21/17 09:00 12/23/17 08:18 (Lipitor) 80 mg HS PO 12/20/17 21:00 12/22/17 20:08 (Coreg) 6.25 mg BID PO 12/20/17 21:00 12/23/17 08:19 (Neurontin) 300 mg BID PO 12/20/17 21:00 12/23/17 08:19 (Flomax) 0.4 mg HS PO 12/20/17 21:00 12/22/17 20:09 (Spiriva Inh) 18 mcg DAILY INH 12/21/17 09:00 12/23/17 08:19 (Tylenol) 650 mg Q6H PRN PO 12/20/17 18:30 (Morphine Inj) 2 mg Q2H PRN IV 12/20/17 20:00 (Pepcid Inj) 20 mg Q12HR IV PUSH 12/20/17 21:00 12/23/17 08:18 (Restoril) 15 mg HS PRN PO 12/20/17 18:30 12/22/17 21:08 (Duoneb Neb) 1 ampule Q4HR NEB INH 12/20/17 20:00 12/23/17 08:00 (Duoneb Neb) 1 ampule Q2HR NEB PRN INH 12/20/17 18:30 12/21/17 02:10 (Heparin Inj) 5,000 units Q8H SQ 12/20/17 20:00 12/23/17 05:04 Miscellaneous Information 1 Q361D XX 12/20/17 18:30 12/20/17 22:00 (Chlorhexidine 2% Cloth) 3 pack Taper DAILY@04 TOP 12/21/17 04:00 12/17/18 03:59 12/23/17 04:00 (Chlorhexidine 2% Cloth) 3 pack UNSCH PRN TOP 12/20/17 18:30 (SoluMEDROL INJ) 40 mg Q6HR IV PUSH 12/21/17 00:00 12/23/17 05:04 (Cozaar) 100 mg DAILY PO 12/21/17 09:00 12/23/17 08:19 Levofloxacin/ Dextrose 150 ml @ 100 mls/hr Q24H IV 12/20/17 20:00 12/22/17 20:02 (Symbicort 160-4.5 Mcg Inh) 1 puff BID INH 12/20/17 21:00 12/23/17 08:18 (Proscar) 5 mg DAILY PO 12/21/17 09:00 12/23/17 08:19 (Mucinex Er) 600 mg BID PO 12/21/17 11:00 12/23/17 08:19 (Catapres) 0.1 mg Q4H PRN PO 12/21/17 10:45 (NS Flush) 2 ml UNSCH PRN IV FLUSH 12/21/17 10:45 12/23/17 08:18 (NS Flush) 2 ml BID IV FLUSH 12/21/17 21:00 12/23/17 08:18 (Zofran Inj) 4 mg Q6H PRN IVP 12/21/17 10:45 (Reglan Inj) 5 mg Q6H PRN IV PUSH 12/21/17 10:45 (Percocet 5-325 Mg) 1 tab Q6H PRN PO 12/21/17 10:45 (Percocet 10-325 Mg) 1 tab Q6H PRN PO 12/21/17 10:45 (Narcan Inj) 0.4 mg UNSCH PRN IV PUSH 12/21/17 10:45 (Cherrie-Colace) 1 tab BID PO 12/21/17 21:00 12/21/17 19:52 (Milk Of Magnesia Liq) 30 ml Q12H PRN PO 12/21/17 10:45 (Senokot) 17.2 mg Q12H PRN PO 12/21/17 10:45 (Dulcolax Supp) 10 mg DAILY PRN RECTAL 12/21/17 10:45 (Lactulose Liq) 30 ml DAILY PRN PO 12/21/17 10:45 Vital Signs / I&O Vital Signs Date Time Temp Pulse Resp B/P (MAP) Pulse Ox O2 Delivery O2 Flow Rate FiO2 12/23/17 08:30 90 Nasal Cannula 4.00 Humidified 12/23/17 08:08 100 55 12/23/17 07:00 98 Bi-Pap 55 12/23/17 06:00 70 12/23/17 04:00 85 12/23/17 04:00 97.9 85 16 93/52 (66) 92 12/23/17 03:54 97 55 12/23/17 03:54 96 BiPAP 55 12/23/17 02:00 81 12/23/17 00:09 96 BiPAP 55 12/23/17 00:06 96 55 12/23/17 00:00 98.0 89 18 103/61 (75) 97 12/23/17 00:00 89 12/22/17 22:23 96 55 12/22/17 22:00 103 12/22/17 20:37 92 Nasal Cannula 7.00 12/22/17 20:00 97.9 100 21 111/69 (83) 94 12/22/17 20:00 100 12/22/17 19:00 92 Nasal Cannula 6.00 12/22/17 18:00 61 12/22/17 16:01 90 26 115/73 (87) 87 12/22/17 16:00 78 12/22/17 16:00 91 29 88 12/22/17 14:00 61 12/22/17 11:54 90 Nasal Cannula 6.00 12/22/17 10:00 78 I/O 12/22/17 12/22/17 12/22/17 12/23/17 12/23/17 12/23/17 07:00 15:00 23:00 07:00 15:00 23:00 Intake Total 720 ml 550 ml 120 ml Output Total 1050 ml 1200 ml 900 ml Balance -330 ml -650 ml -780 ml Intake Oral 720 ml 400 ml 120 ml IV Total 150 ml Output Urine Total 1050 ml 1200 ml 900 ml # Voids 3 # Bowel Movements 0 0 Physical Exam Physical Exam GENERAL: Obese, middle age male in ICU, sitting on side of bed SKIN: Warm and dry. HEAD: Normocephalic. EYES: No scleral icterus. No injection or drainage. NECK: Supple, trachea midline. CARDIOVASCULAR: Irreg irreg. RESPIRATORY: Breath sounds equal bilaterally. Prolonged expiratory phase, wheezes noted. On NC GASTROINTESTINAL: Abdomen soft, non-tender, nondistended. MUSCULOSKELETAL: No cyanosis, or edema. BACK: Nontender without obvious deformity. No CVA tenderness. Laboratory Date/Time Source Procedure Growth Status 12/20/17 23:00 Urine Random Urine Legionella Antigen - Final PRESUMPTIVE NEGATIVE FOR LEGIONELLA P... Complete 12/20/17 23:00 Urine Random Urine Streptococcus pneumoniae Antigen (M - Final PRESUMPTIVE NEGATIVE FOR STREPTOCOCCU... Complete Vital Signs Date Time Temp Pulse Resp B/P (MAP) Pulse Ox O2 Delivery O2 Flow Rate FiO2 12/23/17 08:30 90 Nasal Cannula 4.00 Humidified 12/23/17 08:08 100 55 12/23/17 07:00 98 Bi-Pap 55 12/23/17 06:00 70 12/23/17 04:00 85 12/23/17 04:00 97.9 85 16 93/52 (66) 92 12/23/17 03:54 97 55 12/23/17 03:54 96 BiPAP 55 12/23/17 02:00 81 12/23/17 00:09 96 BiPAP 55 12/23/17 00:06 96 55 12/23/17 00:00 98.0 89 18 103/61 (75) 97 12/23/17 00:00 89 12/22/17 22:23 96 55 12/22/17 22:00 103 12/22/17 20:37 92 Nasal Cannula 7.00 12/22/17 20:00 97.9 100 21 111/69 (83) 94 12/22/17 20:00 100 12/22/17 19:00 92 Nasal Cannula 6.00 12/22/17 18:00 61 12/22/17 16:01 90 26 115/73 (87) 87 12/22/17 16:00 78 12/22/17 16:00 91 29 88 12/22/17 14:00 61 12/22/17 11:54 90 Nasal Cannula 6.00 12/22/17 10:00 78 Imaging Last 72 hours Impressions Chest X-Ray 12/21/17 0000 Signed Impressions: Service Date/Time: Thursday, December 21, 2017 03:07 - CONCLUSION: No patchy non-consolidative infiltrates in the lower lateral right lung. Evangelist Blake MD Chest X-Ray 12/20/17 1490 Signed Impressions: Service Date/Time: Wednesday, December 20, 2017 16:42 - CONCLUSION: Cardiomegaly with probable mild/moderate congestive failure Moderate artifact from respiration. Lei Lomax MD FACR (Vilma Delacruz) Assessment and Plan Assessment and Plan Resolving acute on chronic systolic CHF exacerbation Acute COPD exacerbation Irreg Irreg heart rhythm c/w MAT/WAP History of ischemic CMP. EF currently 50-55% HTN, BP running low Carotid stenosis Smoker LISE-creatnine improving leukocytosis due to steroids Hyperkalemia PLAN: Hold Losartan, give 1 dose of lasix 40mg IV push, then resume torsemide 20mg PO daily tomorrow. Pulmonary following The patient was seen and evaluated by Dr Mina who completed face to face encounter, physical exam and participated in evaluation and management. (Vilma Delacruz) Assessment and Plan The exam, history, and the medical decision-making described in the above note were completed with the assistance of the mid-level provider. I reviewed and agree with the findings presented. I attest that I had a [id number] encounter with the patient on the same day, and personally performed and documented my assessment and findings in the medical record. Overall doing much better (Royal Mina MD) Vilma Delacruz Dec 23, 2017 09:45 Royal Mina MD Dec 24, 2017 13:54
[2017-12-23 10:05] LABS: BICARBONATE 24.2 MEQ/L (21.0-32.0); CALCIUM 8.5 MG/DL (8.5-10.1); CREATININE 1.5 MG/DL (0.60-1.30)
[2017-12-23] MEDS ORDERED: FUROSEMIDE 40 MG/4 ML VIAL IV PUSH ONE (10:30)
--- NOTE | 2017-12-23 12:51 | PD.CONS ---
History of Present Illness Consult Requested By Primary Care Physician Tree Hough MD Diagnoses: History of Present Illness REQUESTING PHYSICIAN: Dr. Worley REASON FOR CONSULTATION: COPD exacerbation. HISTORY OF PRESENT ILLNESS: Mr. Garcia is a pleasant 67-year-old male with a longstanding history of COPD, obstructive sleep apnea,. He uses a CPAP machine and oxygen at nighttime. He went on a cruise recently and his girlfriend Who was also sick. his symptoms has been there for almost a week. He has has been having increasing shortness of breath and has wheezing. Did not have fever or chills. No night sweats. Because of worsening of symptoms, he came to the emergency room. the patient has been treated with systemic steroids. The patient did need to use the BiPAP. he is doing much better right now. he has more than 50% better. H Review of Systems Respiratory: COMPLAINS OF: Cough, Wheezing, Sputum production, Shortness of breath Past Family Social History Allergies: Coded Allergies: No Known Allergies (Verified Allergy, Unknown, 12/20/17) Physical Exam Vital Signs Vital Signs Date Time Temp Pulse Resp B/P (MAP) Pulse Ox O2 Delivery O2 Flow Rate FiO2 12/23/17 12:00 98.0 97 25 118/80 (93) 94 12/23/17 12:00 97 12/23/17 11:00 94 21 107/66 (80) 91 12/23/17 10:00 93 32 114/63 (80) 90 12/23/17 10:00 96 12/23/17 09:00 104 34 135/71 (92) 90 12/23/17 08:30 90 Nasal Cannula 4.00 Humidified 12/23/17 08:08 100 55 12/23/17 08:00 68 12/23/17 08:00 97.6 68 16 126/64 (84) 98 12/23/17 07:00 98 Bi-Pap 55 12/23/17 07:00 73 25 118/69 (85) 98 12/23/17 06:00 70 12/23/17 04:00 85 12/23/17 04:00 97.9 85 16 93/52 (66) 92 12/23/17 03:54 97 55 12/23/17 03:54 96 BiPAP 55 12/23/17 02:00 81 12/23/17 00:09 96 BiPAP 55 12/23/17 00:06 96 55 12/23/17 00:00 98.0 89 18 103/61 (75) 97 12/23/17 00:00 89 12/22/17 22:23 96 55 12/22/17 22:00 103 12/22/17 20:37 92 Nasal Cannula 7.00 12/22/17 20:00 97.9 100 21 111/69 (83) 94 12/22/17 20:00 100 12/22/17 19:00 92 Nasal Cannula 6.00 12/22/17 18:00 61 12/22/17 16:01 90 26 115/73 (87) 87 12/22/17 16:00 78 12/22/17 16:00 91 29 88 12/22/17 14:00 61 Physical Exam GENERAL: This is a well-nourished, well-developed patient, in no apparent distress. SKIN: No rashes, ecchymoses or lesions. Cool and dry. HEAD: Atraumatic. Normocephalic. No temporal or scalp tenderness. EYES: Pupils equal round and reactive. Extraocular motions intact. No scleral icterus. No injection or drainage. ENT: Nose without bleeding, purulent drainage or septal hematoma. Throat without erythema, tonsillar hypertrophy or exudate. Uvula midline. Airway patent. NECK: Trachea midline. No JVD or lymphadenopathy. Supple, nontender, no meningeal signs. CARDIOVASCULAR: Regular rate and rhythm without murmurs, gallops, or rubs. RESPIRATORY: Bilateral expiratory wheezing GASTROINTESTINAL: Abdomen soft, non-tender, nondistended. No hepato-splenomegaly , or palpable masses. No guarding. MUSCULOSKELETAL: Extremities without clubbing, cyanosis, or edema. No joint tenderness, effusion, or edema noted. No calf tenderness. Negative Homans sign bilaterally. NEUROLOGICAL: Awake and alert. Cranial nerves II through XII intact. Motor and sensory grossly within normal limits. Five out of 5 muscle strength in all muscle groups. Normal speech. Laboratory Laboratory Tests Test 12/23/17 09:30 Blood Urea Nitrogen 54 Creatinine 1.50 Random Glucose 192 Calcium Level 8.5 Sodium Level 135 Potassium Level 5.5 Chloride Level 102 Carbon Dioxide Level 24.2 Anion Gap 9 Estimat Glomerular Filtration Rate 47 Date/Time Source Procedure Growth Status 12/20/17 23:00 Urine Random Urine Legionella Antigen - Final PRESUMPTIVE NEGATIVE FOR LEGIONELLA P... Complete 12/20/17 23:00 Urine Random Urine Streptococcus pneumoniae Antigen (M - Final PRESUMPTIVE NEGATIVE FOR STREPTOCOCCU... Complete Result Diagram: 12/22/17 0622 12/23/17 0930 Assessment and Plan Assessment and Plan 1. Respiratory failure. 2. Chronic obstructive pulmonary disease exacerbation. 3. Obstructive sleep apnea. 4. Bronchitis. 5. Hypertension. 6. Coronary artery disease. 7. Morbid obesity. overall the patient is doing much better. continue intravenous steroids. use noninvasive positive pressure ventilation as needed. continue bronchodilators as needed. Wean off of O2 as tolerated for O2 sat more than or equal to 89%. I do believe he would be able to leave the ICU in a.m.. of note this clinical encounter took place on 12/22/2017 and the note is being done on 12/23/2017 Juan Luis Mark MD Dec 23, 2017 12:51
--- NOTE | 2017-12-23 15:19 | HHI.PR ---
Subjective Remarks Patient would like to be transferred to new room, but he is still requiring intermittent BiPAP to maintain adequate oxygen level. Objective Vitals Vital Signs Date Time Temp Pulse Resp B/P (MAP) Pulse Ox O2 Delivery O2 Flow Rate FiO2 12/23/17 14:00 85 12/23/17 13:44 100 Bi-Pap 55 12/23/17 12:00 98.0 97 25 118/80 (93) 94 12/23/17 12:00 97 12/23/17 11:00 94 21 107/66 (80) 91 12/23/17 10:00 93 32 114/63 (80) 90 12/23/17 10:00 96 12/23/17 09:00 104 34 135/71 (92) 90 12/23/17 08:30 90 Nasal Cannula 4.00 Humidified 12/23/17 08:08 100 55 12/23/17 08:00 68 12/23/17 08:00 97.6 68 16 126/64 (84) 98 12/23/17 07:00 98 Bi-Pap 55 12/23/17 07:00 73 25 118/69 (85) 98 12/23/17 06:00 70 12/23/17 04:00 85 12/23/17 04:00 97.9 85 16 93/52 (66) 92 12/23/17 03:54 97 55 12/23/17 03:54 96 BiPAP 55 12/23/17 02:00 81 12/23/17 00:09 96 BiPAP 55 12/23/17 00:06 96 55 12/23/17 00:00 98.0 89 18 103/61 (75) 97 12/23/17 00:00 89 12/22/17 22:23 96 55 12/22/17 22:00 103 12/22/17 20:37 92 Nasal Cannula 7.00 12/22/17 20:00 97.9 100 21 111/69 (83) 94 12/22/17 20:00 100 12/22/17 19:00 92 Nasal Cannula 6.00 12/22/17 18:00 61 12/22/17 16:01 90 26 115/73 (87) 87 12/22/17 16:00 78 12/22/17 16:00 91 29 88 I/O 3/21/18 3/2112/22/17 12/23/17 12/23/17 12/23/17 07:00 15:00 23:00 07:00 15:00 23:00 Intake Total 720 ml 550 ml 120 ml Output Total 1050 ml 1200 ml 900 ml Balance -330 ml -650 ml -780 ml Intake Oral 720 ml 400 ml 120 ml IV Total 150 ml Output Urine Total 1050 ml 1200 ml 900 ml # Voids 3 # Bowel Movements 0 0 Result Diagram: 12/22/17 0622 12/23/17 0930 Objective Remarks GENERAL: Obese patient. SKIN: Warm and dry. HEAD: Normocephalic. EYES: No scleral icterus. No injection or drainage. NECK: Supple, trachea midline. No JVD or lymphadenopathy. CARDIOVASCULAR: Regular rate and rhythm without murmurs, gallops, or rubs. RESPIRATORY: Improved airway, minimal congestion, fair air passage GASTROINTESTINAL: Abdomen soft, non-tender, nondistended. EXTREMITIES: No cyanosis, or edema. NEUROLOGICAL: Awake, alert, and oriented x 3. Non-focal. Procedures None A/P Problem List: (1) COPD with acute exacerbation ICD Code: J44.1 - Chronic obstructive pulmonary disease with (acute) exacerbation Status: Acute (2) Acute respiratory failure with hypoxia ICD Code: J96.01 - Acute respiratory failure with hypoxia Status: Acute Assessment and Plan COPD exacerbation with respiratory failure Patient is still requiring intermittent BiPAP use Continue with steroids, Levaquin, duo nebs, Symbicort Transfer to [facility] when stable on nasal cannula oxygen and no longer needing BiPAP to maintain oxygen above 90 Appreciate pulmonology consult CHF exacerbation Acute on chronic, with rhythm irregularity, undergoing diuresis Appreciate cardiology consult Bronchitis Continue with IV Levaquin Recommend smoking cessation Hypertension Continue with Cozaar home dose DVT prophylaxis Heparin Keenan Acuña MD Dec 23, 2017 15:19
[2017-12-23] MEDS: LEVOFLOXACIN 750 MG PREMIX INJ 150 ML IV SCH (19:45)
[2017-12-23] MEDS: ATORVASTATIN 80 MG TAB PO SCH (19:46)
[2017-12-23] MEDS: TAMSULOSIN HCL 0.4 MG CAP PO SCH (19:46)
[2017-12-23] MEDS: TEMAZEPAM 15 MG CAP PO PRN (21:21)
[2017-12-24] VITALS (22 sets, daily range): BP systolic 81–121; BP diastolic 50–80; PULSE 58–97; RESP 15–33; TEMP 96.6–98.5; O2SAT 86–98
[2017-12-24] MEDS: CHLORHEXIDINE GLUCONATE 2 % 1 PACK (2 CLOTHS) TOP SCH (04:00)
[2017-12-24] MEDS: RESP: ALBUTEROL 2.5 MG/IPRATROPIUM 0.5 MG NEB (SCH) INH ×4 (04:13→16:11)
[2017-12-24] MEDS: HEPARIN SODIUM - SQ 10,000 UNITS/ML VIAL SQ SCH ×3 (04:20→19:17)
[2017-12-24] MEDS: methylPREDNISolone SOD SUCC 40 MG/1 ML VIAL IV PUSH SCH ×4 (05:50→23:35)
[2017-12-24 06:25] LABS: AUTOMATED NEUTROPHIL # 13.5 TH/MM3 (1.8-7.7); BASOPHIL % 0.1 % (0.0-2.0); EOSINOPHIL % 0.2 % (0.0-4.0); HEMATOCRIT 44.1 % (39.0-51.0); HEMOGLOBIN 14.9 GM/DL (13.0-17.0); LYMPH % 5.3 % (9.0-44.0); LYMPHOCYTE # 0.8 TH/MM3 (1.0-4.8); MEAN CELL VOLUME 96.2 FL (80.0-100.0); MEAN CORPUSCULAR HEMOGLOBIN 32.6 PG (27.0-34.0); MEAN CORPUSCULAR HGB CONC 33.8 % (32.0-36.0); MEAN PLATELET VOLUME 8.1 FL (7.0-11.0); MONO % 3.2 % (0.0-8.0); MONOCYTE # 0.5 TH/MM3 (0-0.9); NEUT % 91.2 % (16.0-70.0); PLATELET COUNT 237 TH/MM3 (150-450); RED BLOOD COUNT 4.58 MIL/MM3 (4.50-5.90); RED CELL DISTRIBUTION WIDTH 14.4 % (11.6-17.2); WHITE BLOOD COUNT 14.8 TH/MM3 (4.0-11.0)
[2017-12-24 06:48] LABS: BICARBONATE 31.8 MEQ/L (21.0-32.0); CALCIUM 8.6 MG/DL (8.5-10.1); CREATININE 1.5 MG/DL (0.60-1.30)
[2017-12-24] MEDS: BUDESONIDE-FORMOTEROL 160/4.5 MCG INHALER INH SCH ×2 (08:59→19:15)
[2017-12-24] MEDS: SODIUM CHLORIDE 0.9% FLUSH 10 ML FLUSH IV FLUSH SCH ×2 (08:59→19:16)
[2017-12-24] MEDS: TIOTROPIUM BROMIDE 18 MCG INH INH SCH (08:59)
[2017-12-24] MEDS: SODIUM CHLORIDE 0.9% FLUSH 10 ML FLUSH IV FLUSH PRN (08:59)
[2017-12-24] MEDS: guaiFENesin E.R. 600 MG TAB PO SCH ×2 (09:00→19:16)
[2017-12-24] MEDS: CARVEDILOL 6.25 MG TAB PO SCH ×2 (09:00→21:12)
[2017-12-24] MEDS ORDERED: LOSARTAN 25 MG TAB PO SCH (09:00)
[2017-12-24] MEDS: FAMOTIDINE 20 MG/2 ML VIAL IV PUSH SCH ×2 (09:00→19:17)
[2017-12-24] MEDS: ASPIRIN 325 MG TAB PO SCH (09:00)
[2017-12-24] MEDS: GABAPENTIN 300 MG CAP PO SCH ×2 (09:01→19:18)
[2017-12-24] MEDS: DOCUSATE SODIUM 50 MG/SENNA 8.6 MG TAB PO SCH ×2 (09:01→19:18)
[2017-12-24] MEDS: FINASTERIDE 5 MG TAB PO SCH (09:01)
--- NOTE | 2017-12-24 09:20 | RADRPT ---
EXAM DATE/TIME: 12/24/2017 08:48 [facility] COMPARISON: CHEST SINGLE AP, December 21, 2017, 3:07. INDICATIONS : Shortness of breath. MEDICAL HISTORY : Chronic obstructive pulmonary disease. Hypertension Congestive heart failure. Asthma. SURGICAL HISTORY : None. ENCOUNTER: Subsequent ACUITY: 4 - 6 days PAIN SCORE: 0/10 LOCATION: Bilateral chest FINDINGS: Foreig portable frontal views of the chest show a hazy parenchymal opacity within the lateral right l odessa base. This is improved somewhat relative to the prior study. Left lung remains clear. No effusion s. Heart is normal in size. CONCLUSION: Small consolidation involving the right lung base is slightly less pronounced than the prior study. Evangelist Lyons Jr., MD on December 24, 2017 at 9:16 Board Certified Radiologist. This report was verified electronically.
[2017-12-24] MEDS: RESP: ALBUTEROL 2.5 MG/IPRATROPIUM 0.5 MG NEB (PRN) INH ×2 (09:24→20:46)
[2017-12-24] MEDS ORDERED: FUROSEMIDE 40 MG/4 ML VIAL IV PUSH ONE (10:00)
[2017-12-24] MEDS ORDERED: SODIUM POLYSTYRENE SULFONATE SUSP 15 GM/60 ML CUP PO ONE (10:00)
--- NOTE | 2017-12-24 10:05 | PD.CARD.PN ---
Subjective Subjective Remarks The patient states he feels the same today as yesterday. Continues to desaturate with NC. He is utilizing BIPAP at night. No CP, palpitations or edema. He has not had a BM for the past two days. No nausea. Telemetry reveals runs of accelerated junctional rhythm and continues to have runs of irregularly irregular pattern consistent with MAT/WAP and PACs. Mag was WNL 2 days ago. K+ remains elevated. Serum CO2 WNL. . (Lakshmi Logan) Objective Medications Current Medications Medications (Trade) Dose Ordered Sig/Marielena Route Start Time Stop Time Status Last Admin (Aspirin) 325 mg DAILY PO 12/21/17 09:00 12/24/17 09:00 (Lipitor) 80 mg HS PO 12/20/17 21:00 12/23/17 19:46 (Coreg) 6.25 mg BID PO 12/20/17 21:00 12/24/17 09:00 (Neurontin) 300 mg BID PO 12/20/17 21:00 12/24/17 09:01 (Flomax) 0.4 mg HS PO 12/20/17 21:00 12/23/17 19:46 (Spiriva Inh) 18 mcg DAILY INH 12/21/17 09:00 12/24/17 08:59 (Tylenol) 650 mg Q6H PRN PO 12/20/17 18:30 (Morphine Inj) 2 mg Q2H PRN IV 12/20/17 20:00 (Pepcid Inj) 20 mg Q12HR IV PUSH 12/20/17 21:00 12/24/17 09:00 (Restoril) 15 mg HS PRN PO 12/20/17 18:30 12/23/17 21:21 (Duoneb Neb) 1 ampule Q4HR NEB INH 12/20/17 20:00 12/24/17 04:13 (Duoneb Neb) 1 ampule Q2HR NEB PRN INH 12/20/17 18:30 12/24/17 09:24 (Heparin Inj) 5,000 units Q8H SQ 12/20/17 20:00 12/24/17 04:20 Miscellaneous Information 1 Q361D XX 12/20/17 18:30 12/20/17 22:00 (Chlorhexidine 2% Cloth) 3 pack Taper DAILY@04 TOP 12/21/17 04:00 12/17/18 03:59 12/23/17 04:00 (Chlorhexidine 2% Cloth) 3 pack UNSCH PRN TOP 12/20/17 18:30 (SoluMEDROL INJ) 40 mg Q6HR IV PUSH 12/21/17 00:00 12/24/17 05:50 Levofloxacin/ Dextrose 150 ml @ 100 mls/hr Q24H IV 12/20/17 20:00 12/23/17 19:45 (Symbicort 160-4.5 Mcg Inh) 1 puff BID INH 12/20/17 21:00 12/24/17 08:59 (Proscar) 5 mg DAILY PO 12/21/17 09:00 12/24/17 09:01 (Mucinex Er) 600 mg BID PO 12/21/17 11:00 12/24/17 09:00 (Catapres) 0.1 mg Q4H PRN PO 12/21/17 10:45 (NS Flush) 2 ml UNSCH PRN IV FLUSH 12/21/17 10:45 12/24/17 08:59 (NS Flush) 2 ml BID IV FLUSH 12/21/17 21:00 12/24/17 08:59 (Zofran Inj) 4 mg Q6H PRN IVP 12/21/17 10:45 (Reglan Inj) 5 mg Q6H PRN IV PUSH 12/21/17 10:45 (Percocet 5-325 Mg) 1 tab Q6H PRN PO 12/21/17 10:45 (Percocet 10-325 Mg) 1 tab Q6H PRN PO 12/21/17 10:45 (Narcan Inj) 0.4 mg UNSCH PRN IV PUSH 12/21/17 10:45 (Cherrie-Colace) 1 tab BID PO 12/21/17 21:00 12/24/17 09:01 (Milk Of Magnesia Liq) 30 ml Q12H PRN PO 12/21/17 10:45 (Senokot) 17.2 mg Q12H PRN PO 12/21/17 10:45 (Dulcolax Supp) 10 mg DAILY PRN RECTAL 12/21/17 10:45 (Lactulose Liq) 30 ml DAILY PRN PO 12/21/17 10:45 (Cozaar) 25 mg DAILY PO 12/24/17 09:00 Vital Signs / I&O Vital Signs Date Time Temp Pulse Resp B/P (MAP) Pulse Ox O2 Delivery O2 Flow Rate FiO2 12/24/17 09:30 93 Nasal Cannula 5.00 Humidified 12/24/17 09:24 94 Nasal Cannula 5.00 12/24/17 07:00 98 Bi-Pap 55 12/24/17 06:00 58 12/24/17 04:10 95 55 12/24/17 04:00 96.6 85 17 113/59 (77) 97 12/24/17 04:00 85 12/24/17 02:00 65 12/24/17 00:00 68 12/24/17 00:00 96.8 68 23 108/57 (74) 97 12/23/17 23:31 95 55 12/23/17 22:00 96 Bi-Pap 55 12/23/17 22:00 73 12/23/17 21:48 98 55 12/23/17 21:48 98 BiPAP 55 12/23/17 20:00 98.7 99 23 114/86 (95) 91 12/23/17 20:00 99 12/23/17 19:00 94 Nasal Cannula 4.00 12/23/17 18:00 99 12/23/17 16:00 97.2 73 13 95/52 (66) 96 12/23/17 16:00 73 12/23/17 15:00 91 16 103/59 (74) 95 12/23/17 14:00 85 12/23/17 14:00 79 26 90/53 (65) 97 12/23/17 13:44 100 Bi-Pap 55 12/23/17 13:00 100 22 125/64 (84) 92 12/23/17 12:00 98.0 97 25 118/80 (93) 94 12/23/17 12:00 97 12/23/17 11:00 94 21 107/66 (80) 91 12/23/17 10:00 93 32 114/63 (80) 90 12/23/17 10:00 96 I/O 12/23/17 12/23/17 12/23/17 12/24/17 12/24/17 12/24/17 07:00 15:00 23:00 07:00 15:00 23:00 Intake Total 120 ml 1094 ml 240 ml Output Total 900 ml 975 ml 1140 ml Balance -780 ml 119 ml -900 ml Intake Oral 120 ml 944 ml 240 ml IV Total 150 ml Output Urine Total 900 ml 975 ml 1140 ml # Bowel Movements 0 0 Physical Exam GENERAL: Obese, middle age male in ICU SKIN: Warm and dry. HEAD: Normocephalic. EYES: No scleral icterus. No injection or drainage. NECK: Supple, trachea midline. CARDIOVASCULAR: RRR RESPIRATORY: Breath sounds equal bilaterally. Prolonged expiratory phase, exp wheezing, scattered rales. On NC GASTROINTESTINAL: Abdomen soft, non-tender, nondistended. MUSCULOSKELETAL: No cyanosis, or edema. BACK: Nontender without obvious deformity. Laboratory Laboratory Tests Test 12/24/17 05:20 White Blood Count 14.8 TH/MM3 Red Blood Count 4.58 MIL/MM3 Hemoglobin 14.9 GM/DL Hematocrit 44.1 % Mean Corpuscular Volume 96.2 FL Mean Corpuscular Hemoglobin 32.6 PG Mean Corpuscular Hemoglobin Concent 33.8 % Red Cell Distribution Width 14.4 % Platelet Count 237 TH/MM3 Mean Platelet Volume 8.1 FL Neutrophils (%) (Auto) 91.2 % Lymphocytes (%) (Auto) 5.3 % Monocytes (%) (Auto) 3.2 % Eosinophils (%) (Auto) 0.2 % Basophils (%) (Auto) 0.1 % Neutrophils # (Auto) 13.5 TH/MM3 Lymphocytes # (Auto) 0.8 TH/MM3 Monocytes # (Auto) 0.5 TH/MM3 Eosinophils # (Auto) 0.0 TH/MM3 Basophils # (Auto) 0.0 TH/MM3 CBC Comment DIFF FINAL Differential Comment Blood Urea Nitrogen 55 MG/DL Creatinine 1.50 MG/DL Random Glucose 153 MG/DL Calcium Level 8.6 MG/DL Sodium Level 138 MEQ/L Potassium Level 5.4 MEQ/L Chloride Level 101 MEQ/L Carbon Dioxide Level 31.8 MEQ/L Anion Gap 5 MEQ/L Estimat Glomerular Filtration Rate 47 ML/MIN Imaging Last 24 hours Impressions Chest X-Ray 12/24/17 0000 Signed Impressions: Service Date/Time: Sunday, December 24, 2017 08:48 - CONCLUSION: Small consolidation involving the right lung base is slightly less pronounced than the prior study. Evangelist Lyons Jr., MD (Lakshmi Logan) Assessment and Plan Assessment and Plan Resolving acute on chronic systolic CHF exacerbation Acute COPD exacerbation Irreg Irreg heart rhythm c/w MAT/WAP and runs of accelerated junction rhythm. History of ischemic CMP. EF currently 50-55% HTN, BP now low Carotid stenosis Former smoker with recent relapse LISE Hyperkalemia Leukocytosis due to steroids PLAN: CXR Lasix 40 mg IVP once and Kayexalate once. Follow up BMP tomorrow. Plan to transition to torsemide 20 mg PO daily once CHF exacerbation resolves Hold Losartan The patient was seen and evaluated by Dr Mina who completed face to face encounter, physical exam and participated in evaluation and management. (Lakshmi Logan) Assessment and Plan The exam, history, and the medical decision-making described in the above note were completed with the assistance of the mid-level provider. I reviewed and agree with the findings presented. I attest that I had a arux-ii-disu encounter with the patient on the same day. (Royal Mina MD) Lakshmi Logan Dec 24, 2017 10:05 Royal Mina MD Dec 24, 2017 13:56
--- NOTE | 2017-12-24 18:11 | HHI.PR ---
Subjective Remarks Patient states he is feeling better today, he denies that he has used BiPAP outside of sleep time. He has up on the side of the bed eating a meal using only the nasal cannula oxygen. Objective Vitals Vital Signs Date Time Temp Pulse Resp B/P (MAP) Pulse Ox O2 Delivery O2 Flow Rate FiO2 12/24/17 16:00 95 12/24/17 16:00 98.3 95 26 84/61 (69) 91 12/24/17 15:00 93 26 105/50 (68) 91 12/24/17 14:00 91 12/24/17 14:00 90 31 91/59 (70) 92 12/24/17 13:00 96 29 102/65 (77) 92 12/24/17 12:00 85 12/24/17 12:00 96.9 85 24 98/76 (83) 93 12/24/17 11:05 97 17 103/66 (78) 93 12/24/17 11:00 97 17 103/66 (78) 93 12/24/17 10:00 94 12/24/17 10:00 94 19 118/60 (79) 90 12/24/17 09:30 93 Nasal Cannula 5.00 Humidified 12/24/17 09:24 94 Nasal Cannula 5.00 12/24/17 09:00 97 22 113/80 (91) 86 12/24/17 08:00 75 12/24/17 08:00 97.6 75 15 121/64 (83) 95 12/24/17 07:00 98 Bi-Pap 55 12/24/17 07:00 60 19 110/56 (74) 98 12/24/17 06:00 58 12/24/17 04:10 95 55 12/24/17 04:00 96.6 85 17 113/59 (77) 97 12/24/17 04:00 85 12/24/17 02:00 65 12/24/17 00:00 68 12/24/17 00:00 96.8 68 23 108/57 (74) 97 12/23/17 23:31 95 55 12/23/17 22:00 96 Bi-Pap 55 12/23/17 22:00 73 12/23/17 21:48 98 55 12/23/17 21:48 98 BiPAP 55 12/23/17 20:00 98.7 99 23 114/86 (95) 91 12/23/17 20:00 99 12/23/17 19:00 94 Nasal Cannula 4.00 12/23/17 19:00 94 Nasal Cannula 4.00 I/O 12/23/17 12/23/17 12/23/17 12/24/17 12/24/17 12/24/17 07:00 15:00 23:00 07:00 15:00 23:00 Intake Total 120 ml 1094 ml 240 ml Output Total 900 ml 975 ml 1140 ml Balance -780 ml 119 ml -900 ml Intake Oral 120 ml 944 ml 240 ml IV Total 150 ml Output Urine Total 900 ml 975 ml 1140 ml # Bowel Movements 0 0 Result Diagram: 12/24/17 0512/24/17 05 Objective Remarks GENERAL: Obese patient. SKIN: Warm and dry. HEAD: Normocephalic. EYES: No scleral icterus. No injection or drainage. NECK: Supple, trachea midline. No JVD or lymphadenopathy. CARDIOVASCULAR: Regular rate and rhythm without murmurs, gallops, or rubs. RESPIRATORY: Minimal congestive sounds no crackles, scant wheezes. GASTROINTESTINAL: Abdomen soft, non-tender, nondistended. EXTREMITIES: No cyanosis, or edema. NEUROLOGICAL: Awake, alert, and oriented x 3. Non-focal. Procedures None A/P Problem List: (1) COPD with acute exacerbation ICD Code: J44.1 - Chronic obstructive pulmonary disease with (acute) exacerbation Status: Acute (2) Acute respiratory failure with hypoxia ICD Code: J96.01 - Acute respiratory failure with hypoxia Status: Acute Assessment and Plan COPD exacerbation with respiratory failure BiPAP use is now only at sleep time Patient is slowly improving with standard therapy Continue with steroids, Levaquin, duo nebs, Symbicort Transfer to [facility] today Appreciate pulmonology consult CHF exacerbation Acute on chronic, with rhythm irregularity, undergoing diuresis Appreciate cardiology consult Bronchitis Continue with IV Levaquin Recommend smoking cessation Hypertension Continue with Cozaar home dose DVT prophylaxis Heparin Keenan Acuña MD Dec 24, 2017 18:11
[2017-12-24] MEDS: LEVOFLOXACIN 750 MG PREMIX INJ 150 ML IV SCH (19:14)
[2017-12-24] MEDS: ATORVASTATIN 80 MG TAB PO SCH (19:16)
[2017-12-24] MEDS: TAMSULOSIN HCL 0.4 MG CAP PO SCH (19:16)
[2017-12-24] MEDS: TEMAZEPAM 15 MG CAP PO PRN (21:12)
[2017-12-25] VITALS (12 sets, daily range): BP systolic 101–127; BP diastolic 50–73; PULSE 65–111; RESP 13–29; TEMP 97–98; O2SAT 85–100
[2017-12-25] MEDS: CHLORHEXIDINE GLUCONATE 2 % 1 PACK (2 CLOTHS) TOP SCH (04:00)
[2017-12-25] MEDS: methylPREDNISolone SOD SUCC 40 MG/1 ML VIAL IV PUSH SCH ×3 (04:39→17:34)
[2017-12-25] MEDS: HEPARIN SODIUM - SQ 10,000 UNITS/ML VIAL SQ SCH ×3 (04:40→20:00)
[2017-12-25] MEDS: RESP: ALBUTEROL 2.5 MG/IPRATROPIUM 0.5 MG NEB (PRN) INH ×3 (04:47→19:12)
[2017-12-25] MEDS: FAMOTIDINE 20 MG/2 ML VIAL IV PUSH SCH ×2 (09:37→20:56)
[2017-12-25] MEDS: GABAPENTIN 300 MG CAP PO SCH ×2 (09:38→20:56)
[2017-12-25] MEDS: guaiFENesin E.R. 600 MG TAB PO SCH ×2 (09:38→20:56)
[2017-12-25] MEDS: CARVEDILOL 6.25 MG TAB PO SCH ×2 (09:38→20:55)
[2017-12-25] MEDS: FINASTERIDE 5 MG TAB PO SCH (09:38)
[2017-12-25] MEDS: DOCUSATE SODIUM 50 MG/SENNA 8.6 MG TAB PO SCH ×2 (09:38→20:56)
[2017-12-25] MEDS: ASPIRIN 325 MG TAB PO SCH (09:38)
[2017-12-25] MEDS: SODIUM CHLORIDE 0.9% FLUSH 10 ML FLUSH IV FLUSH SCH ×2 (09:40→20:55)
[2017-12-25] MEDS: BUDESONIDE-FORMOTEROL 160/4.5 MCG INHALER INH SCH ×2 (09:45→20:55)
[2017-12-25] MEDS: TIOTROPIUM BROMIDE 18 MCG INH INH SCH (09:45)
[2017-12-25] MEDS ORDERED: LACTULOSE SYRUP 20 GM/30 ML CUP PO ONE (10:30)
--- NOTE | 2017-12-25 13:43 | HHI.PR ---
Subjective Remarks Feels much better Less wheezing Less coughing He does not feel he is back to baseline yet Objective Vital Signs Date Time Temp Pulse Resp B/P (MAP) Pulse Ox O2 Delivery O2 Flow Rate FiO2 12/25/17 12:40 100 12/25/17 12:00 97.4 78 22 114/55 (74) 92 12/25/17 08:30 97.5 96 22 120/70 (87) 93 12/25/17 08:00 98 12/25/17 08:00 97.6 98 13 115/69 (84) 85 12/25/17 07:00 92 Bi-Pap 5.00 55 12/25/17 04:51 100 BiPAP 55 12/25/17 04:00 71 12/25/17 04:00 71 27 101/50 (67) 98 12/25/17 00:00 65 12/25/17 00:00 97.0 65 29 106/61 (76) 98 12/24/17 22:00 77 32 98 12/24/17 22:00 96 Bi-Pap 55 12/24/17 21:50 96 50 12/24/17 21:06 78 33 112/71 (85) 97 12/24/17 20:46 95 Nasal Cannula 4.00 12/24/17 20:00 98.5 78 18 81/53 (62) 95 12/24/17 20:00 78 12/24/17 19:00 94 Nasal Cannula 3.00 Humidified 12/24/17 16:00 95 12/24/17 16:00 98.3 95 26 84/61 (69) 91 12/24/17 15:00 93 26 105/50 (68) 91 12/24/17 14:00 91 12/24/17 14:00 90 31 91/59 (70) 92 I/O 12/24/17 12/24/17 12/24/17 12/25/17 12/25/17 12/25/17 07:00 15:00 23:00 07:00 15:00 23:00 Intake Total 240 ml 1330 ml 360 ml Output Total 1140 ml 1552 ml 1140 ml Balance -900 ml -222 ml -780 ml Intake Oral 240 ml 1180 ml 360 ml IV Total 150 ml Output Urine Total 1140 ml 1552 ml 1140 ml # Bowel Movements 0 0 Result Diagram: 12/24/17 0520 12/24/17 0520 Objective Remarks General appearance: No acute distress Neck: Supple Lungs: Decreased expiratory wheezing Heart: S1-S2 Abdomen: Obese soft Neuro: Alert oriented 3 Assessment and Plan Assessment and Plan 1. Respiratory failure. 2. Chronic obstructive pulmonary disease exacerbation. 3. Obstructive sleep apnea. 4. Bronchitis. 5. Hypertension. 6. Coronary artery disease. 7. Morbid obesity. overall the patient is doing much better. I recommended to stop IV steroids. Start prednisone 30 mg p.o. daily. use noninvasive positive pressure ventilation as needed. continue bronchodilators as needed. Wean off of O2 as tolerated for O2 sat more than or equal to 89%. I would recommend to assess his oxygen requirements with ambulation. Possibly home in 1-2 days. He will need outpatient follow-up with me. I had a long discussion with the patient and answered all his questions to his satisfaction. of note this clinical encounter took place on 12/22/2017 and the note is being done on 12/23/2017 Juan Luis Mark MD Dec 25, 2017 13:43
--- NOTE | 2017-12-25 14:08 | HHI.PR ---
Subjective Remarks Mr. Garcia has transferred out of the ICU, he is happy to be in a regular room and is asking about how soon he might go home. Objective Vitals Vital Signs Date Time Temp Pulse Resp B/P (MAP) Pulse Ox O2 Delivery O2 Flow Rate FiO2 12/25/17 12:40 100 12/25/17 12:00 97.4 78 22 114/55 (74) 92 12/25/17 08:30 97.5 96 22 120/70 (87) 93 12/25/17 08:00 98 12/25/17 08:00 97.6 98 13 115/69 (84) 85 12/25/17 07:00 92 Bi-Pap 5.00 55 12/25/17 04:51 100 BiPAP 55 12/25/17 04:00 71 12/25/17 04:00 71 27 101/50 (67) 98 12/25/17 00:00 65 12/25/17 00:00 97.0 65 29 106/61 (76) 98 12/24/17 22:00 77 32 98 12/24/17 22:00 96 Bi-Pap 55 12/24/17 21:50 96 50 12/24/17 21:06 78 33 112/71 (85) 97 12/24/17 20:46 95 Nasal Cannula 4.00 12/24/17 20:00 98.5 78 18 81/53 (62) 95 12/24/17 20:00 78 12/24/17 19:00 94 Nasal Cannula 3.00 Humidified 12/24/17 16:00 95 12/24/17 16:00 98.3 95 26 84/61 (69) 91 12/24/17 15:00 93 26 105/50 (68) 91 I/O 12/24/17 12/24/17 12/24/17 12/25/17 12/25/17 12/25/17 07:00 15:00 23:00 07:00 15:00 23:00 Intake Total 240 ml 1330 ml 360 ml Output Total 1140 ml 1552 ml 1140 ml Balance -900 ml -222 ml -780 ml Intake Oral 240 ml 1180 ml 360 ml IV Total 150 ml Output Urine Total 1140 ml 1552 ml 1140 ml # Bowel Movements 0 0 Result Diagram: 12/24/1751912/24/17519 Objective Remarks GENERAL: Obese patient. SKIN: Warm and dry. HEAD: Normocephalic. EYES: No scleral icterus. No injection or drainage. NECK: Supple, trachea midline. No JVD or lymphadenopathy. CARDIOVASCULAR: Regular rate and rhythm without murmurs, gallops, or rubs. RESPIRATORY: Minimal congestive sounds no crackles, scant wheezes. GASTROINTESTINAL: Abdomen soft, non-tender, nondistended. EXTREMITIES: No cyanosis, or edema. NEUROLOGICAL: Awake, alert, and oriented x 3. Non-focal. Procedures None A/P Problem List: (1) COPD with acute exacerbation ICD Code: J44.1 - Chronic obstructive pulmonary disease with (acute) exacerbation Status: Acute (2) Acute respiratory failure with hypoxia ICD Code: J96.01 - Acute respiratory failure with hypoxia Status: Acute Assessment and Plan COPD exacerbation with respiratory failure BiPAP during naps and overnight Patient is slowly improving with standard therapy Continue with steroids, Levaquin, duo nebs, Symbicort We will obtain oxygen walk test tomorrow Appreciate pulmonology consult Rash He has a dry scaly cracked rash over both palms and soles This has improved with IV steroids he is receiving for his COPD exacerbation We will add Lotrisone for moisture and to treat possible fungal elements CHF exacerbation Acute on chronic, with rhythm irregularity, undergoing diuresis Appreciate cardiology consult Bronchitis Continue with IV Levaquin Recommend smoking cessation Hypertension Continue with Cozaar home dose Constipation Has not been responsive to conservative therapy Will add lactulose 1 today DVT prophylaxis Heparin Keenan Acuña MD Dec 25, 2017 14:08
[2017-12-25] MEDS: BETAMETHASONE/CLOTRIMAZOLE CREAM 15 GM TOPICAL SCH ×2 (17:35→20:56)
[2017-12-25 18:13] LABS: AUTOMATED NEUTROPHIL # 14.2 TH/MM3 (1.8-7.7); HEMATOCRIT 44.7 % (39.0-51.0); HEMOGLOBIN 15.4 GM/DL (13.0-17.0); LYMPH % 5.1 % (9.0-44.0); LYMPHOCYTE # 0.8 TH/MM3 (1.0-4.8); MEAN CELL VOLUME 96.3 FL (80.0-100.0); MEAN CORPUSCULAR HEMOGLOBIN 33.1 PG (27.0-34.0); MEAN CORPUSCULAR HGB CONC 34.4 % (32.0-36.0); MEAN PLATELET VOLUME 8.5 FL (7.0-11.0); MONO % 6.9 % (0.0-8.0); MONOCYTE # 1.1 TH/MM3 (0-0.9); PLATELET COUNT 282 TH/MM3 (150-450); RED BLOOD COUNT 4.64 MIL/MM3 (4.50-5.90); RED CELL DISTRIBUTION WIDTH 14.7 % (11.6-17.2); WHITE BLOOD COUNT 16.2 TH/MM3 (4.0-11.0)
[2017-12-25 18:44] LABS: CALCIUM 8.5 MG/DL (8.5-10.1); CREATININE 1.82 MG/DL (0.60-1.30)
[2017-12-25] MEDS: LEVOFLOXACIN 750 MG PREMIX INJ 150 ML IV SCH (20:00)
[2017-12-25] MEDS: TAMSULOSIN HCL 0.4 MG CAP PO SCH (20:56)
[2017-12-25] MEDS: ATORVASTATIN 80 MG TAB PO SCH (20:56)
[2017-12-26] VITALS (12 sets, daily range): BP systolic 102–149; BP diastolic 59–90; PULSE 58–88; RESP 16–24; TEMP 97.1–98.1; O2SAT 93–100
[2017-12-26] MEDS: CHLORHEXIDINE GLUCONATE 2 % 1 PACK (2 CLOTHS) TOP SCH (04:00)
[2017-12-26] MEDS: HEPARIN SODIUM - SQ 10,000 UNITS/ML VIAL SQ SCH ×3 (05:15→20:00)
[2017-12-26] MEDS: methylPREDNISolone SOD SUCC 40 MG/1 ML VIAL IV PUSH SCH ×5 (05:15→23:25)
[2017-12-26] MEDS: RESP: ALBUTEROL 2.5 MG/IPRATROPIUM 0.5 MG NEB (PRN) INH ×3 (08:35→21:42)
[2017-12-26] MEDS: FAMOTIDINE 20 MG/2 ML VIAL IV PUSH SCH ×2 (09:00→20:19)
[2017-12-26] MEDS: FINASTERIDE 5 MG TAB PO SCH (09:00)
[2017-12-26] MEDS: SODIUM CHLORIDE 0.9% FLUSH 10 ML FLUSH IV FLUSH SCH ×2 (09:00→20:19)
[2017-12-26] MEDS: CARVEDILOL 6.25 MG TAB PO SCH ×2 (09:00→20:18)
[2017-12-26] MEDS: DOCUSATE SODIUM 50 MG/SENNA 8.6 MG TAB PO SCH ×2 (09:00→20:18)
[2017-12-26] MEDS: GABAPENTIN 300 MG CAP PO SCH ×2 (09:00→20:18)
[2017-12-26] MEDS: BETAMETHASONE/CLOTRIMAZOLE CREAM 15 GM TOPICAL SCH ×2 (09:00→20:19)
[2017-12-26] MEDS: TIOTROPIUM BROMIDE 18 MCG INH INH SCH (09:00)
[2017-12-26] MEDS: BUDESONIDE-FORMOTEROL 160/4.5 MCG INHALER INH SCH ×2 (09:00→20:19)
[2017-12-26] MEDS: guaiFENesin E.R. 600 MG TAB PO SCH ×2 (09:00→20:18)
[2017-12-26] MEDS: ASPIRIN 325 MG TAB PO SCH (09:00)
--- NOTE | 2017-12-26 10:28 | HHI.PR ---
Subjective Remarks Feels much better No wheezing No coughing He is almost back to his baseline Objective Vital Signs Date Time Temp Pulse Resp B/P (MAP) Pulse Ox O2 Delivery O2 Flow Rate FiO2 12/26/17 08:37 94 Nasal Cannula 3.00 12/26/17 08:10 61 12/26/17 08:00 97.4 70 16 114/59 (77) 99 12/26/17 04:12 95 55 12/26/17 04:00 98.1 72 20 123/65 (84) 100 12/26/17 04:00 68 12/26/17 00:00 Bi-Pap 12/26/17 00:00 98.1 78 20 102/67 (79) 98 12/26/17 00:00 72 12/25/17 22:00 97 55 12/25/17 20:30 Nasal Cannula 3.00 12/25/17 20:00 98.0 83 22 115/73 (87) 93 12/25/17 20:00 108 12/25/17 19:13 93 Nasal Cannula 3.00 12/25/17 16:00 111 12/25/17 16:00 97.5 99 22 127/59 (81) 93 12/25/17 13:30 93 Nasal Cannula 3.00 12/25/17 12:40 100 12/25/17 12:00 97.4 78 22 114/55 (74) 92 I/O 12/25/17 12/25/17 12/25/17 12/26/17 12/26/17 12/26/17 07:00 15:00 23:00 07:00 15:00 23:00 Intake Total 360 ml 870 ml Output Total 1140 ml 725 ml Balance -780 ml 870 ml -725 ml Intake Oral 360 ml 720 ml IV Total 150 ml Output Urine Total 1140 ml 725 ml # Voids 4 # Bowel Movements 0 1 Result Diagram: 12/25/17 1636 12/25/17 1636 Objective Remarks General appearance: No acute distress obese Neck: Supple Lungs: Clear Heart: S1-S2 Abdomen: Obese soft Extremities: No edema no cyanosis SCDs on Neuro: Alert oriented 3 Assessment and Plan Assessment and Plan 1. Respiratory failure. Resolved 2. Chronic obstructive pulmonary disease exacerbation. Better 3. Obstructive sleep apnea. 4. Bronchitis. 5. Hypertension. 6. Coronary artery disease. 7. Morbid obesity. overall the patient is doing much better. Continue prednisone 30 mg p.o. daily. use noninvasive positive pressure ventilation as needed. continue bronchodilators as needed. Wean off of O2 as tolerated for O2 sat more than or equal to 89%. I would recommend to assess his oxygen requirements with ambulation. Okay to go home from my perspective He will need outpatient follow-up with me. I had a long discussion with the patient and answered all his questions to his satisfaction. Juan Luis Mark MD Dec 26, 2017 10:28
[2017-12-26] MEDS ORDERED: PRED20 PO (10:58)
--- NOTE | 2017-12-26 11:10 | HHI.FF ---
Face to Face Verification Diagnosis: (1) Acute respiratory failure with hypoxia (2) COPD with acute exacerbation Physical Therapy Order: Evaluate and Treat Occupational Therapy Order: Evaluate and Treat Home Health Nursing Order: CHF education Nursing assessment with vital signs I have seen patient João Garcia on 12/26/17. My clinical findings support the need for the requested home health care services because: Deconditioned w/ increased weakness I certify that my clinical findings support that this patient is homebound because: Hx COPD- exertion dyspnea/weakness Aissatou Palacios MD Dec 26, 2017 11:10
[2017-12-26] MEDS ORDERED: OXYGENDME NAS.CANULA (13:01)
--- NOTE | 2017-12-26 13:02 | HHI.PR ---
Subjective Remarks "I feels slightly better today, Patient o still on nasal cannula, he has short of breath on ambulation Cleared by pulmonology to be discharged home on current regimen and O2 Objective Vitals Vital Signs Date Time Temp Pulse Resp B/P (MAP) Pulse Ox O2 Delivery O2 Flow Rate FiO2 12/26/17 08:37 94 Nasal Cannula 3.00 12/26/17 08:10 61 12/26/17 08:00 97.4 70 16 114/59 (77) 99 12/26/17 07:00 Bi-Pap 6.00 12/26/17 04:12 95 55 12/26/17 04:00 98.1 72 20 123/65 (84) 100 12/26/17 04:00 68 12/26/17 00:00 Bi-Pap 12/26/17 00:00 98.1 78 20 102/67 (79) 98 12/26/17 00:00 72 12/25/17 22:00 97 55 12/25/17 20:30 Nasal Cannula 3.00 12/25/17 20:00 98.0 83 22 115/73 (87) 93 12/25/17 20:00 108 12/25/17 19:13 93 Nasal Cannula 3.00 12/25/17 16:00 111 12/25/17 16:00 97.5 99 22 127/59 (81) 93 12/25/17 13:30 93 Nasal Cannula 3.00 I/O 12/25/17 12/25/17 12/25/17 12/26/17 12/26/17 12/26/17 07:00 15:00 23:00 07:00 15:00 23:00 Intake Total 360 ml 870 ml Output Total 1140 ml 725 ml Balance -780 ml 870 ml -725 ml Intake Oral 360 ml 720 ml IV Total 150 ml Output Urine Total 1140 ml 725 ml # Voids 4 # Bowel Movements 0 1 Result Diagram: 12/25/17 1636 12/25/17 1636 Objective Remarks GENERAL: This is a well-nourished, well-developed patient, in no apparent distress. CARDIOVASCULAR: Regular rate and rhythm without murmurs, gallops, or rubs. RESPIRATORY: Diffuse expiratory wheezes, diminish breath sounds bilaterally. GASTROINTESTINAL: Abdomen soft, non-tender,nondistended. Normal active bowel sounds MUSCULOSKELETAL: Extremities without clubbing, cyanosis, or edema. NEURO: Alert & Oriented x4 to person, place, time, situation. Moves all ext x4 Procedures None A/P Problem List: (1) COPD with acute exacerbation ICD Code: J44.1 - Chronic obstructive pulmonary disease with (acute) exacerbation Status: Acute (2) Acute respiratory failure with hypoxia ICD Code: J96.01 - Acute respiratory failure with hypoxia Status: Acute Assessment and Plan 12/26: Plan was to discharge patient home with home O2, patient was ordered, however later on I received a call from the nurse stating that the patient needed 4 L of home O2 to keep his sat above 90, so I held the discharge in order incentive spirometer every hour and ambulate patient to improve his ventilation, will plan on discharging tomorrow and repeat home O2 in a.m. A/P: COPD exacerbation with respiratory failure BiPAP during naps and overnight Patient is slowly improving with standard therapy Continue with steroids, Levaquin, duo nebs, Symbicort We will obtain oxygen walk test tomorrow Appreciate pulmonology consult Rash He has a dry scaly cracked rash over both palms and soles This has improved with IV steroids he is receiving for his COPD exacerbation We will add Lotrisone for moisture and to treat possible fungal elements CHF exacerbation Acute on chronic, with rhythm irregularity, undergoing diuresis Appreciate cardiology consult Bronchitis Continue with IV Levaquin Recommend smoking cessation Hypertension Continue with Cozaar home dose Constipation Has not been responsive to conservative therapy Will add lactulose 1 today DVT prophylaxis Heparin Aissatou Palacios MD Dec 26, 2017 13:02
[2017-12-26] MEDS: LEVOFLOXACIN 750 MG PREMIX INJ 150 ML IV SCH (20:00)
[2017-12-26] MEDS: TAMSULOSIN HCL 0.4 MG CAP PO SCH (20:18)
[2017-12-26] MEDS: TEMAZEPAM 15 MG CAP PO PRN (20:18)
[2017-12-26] MEDS: ATORVASTATIN 80 MG TAB PO SCH (20:18)
[2017-12-27] VITALS (11 sets, daily range): BP systolic 121–140; BP diastolic 62–82; PULSE 62–84; RESP 20; TEMP 97.3–98.4; O2SAT 93–100
[2017-12-27] MEDS: CHLORHEXIDINE GLUCONATE 2 % 1 PACK (2 CLOTHS) TOP SCH (04:00)
[2017-12-27] MEDS: HEPARIN SODIUM - SQ 10,000 UNITS/ML VIAL SQ SCH ×2 (05:08→12:26)
[2017-12-27] MEDS: methylPREDNISolone SOD SUCC 40 MG/1 ML VIAL IV PUSH SCH ×2 (05:08→12:25)
[2017-12-27] MEDS: RESP: ALBUTEROL 2.5 MG/IPRATROPIUM 0.5 MG NEB (PRN) INH ×2 (08:10→11:58)
[2017-12-27] MEDS: ASPIRIN 325 MG TAB PO SCH (08:25)
[2017-12-27] MEDS: guaiFENesin E.R. 600 MG TAB PO SCH (08:25)
[2017-12-27] MEDS: GABAPENTIN 300 MG CAP PO SCH (08:25)
[2017-12-27] MEDS: CARVEDILOL 6.25 MG TAB PO SCH (08:26)
[2017-12-27] MEDS: DOCUSATE SODIUM 50 MG/SENNA 8.6 MG TAB PO SCH (08:26)
[2017-12-27] MEDS: FINASTERIDE 5 MG TAB PO SCH (08:26)
[2017-12-27] MEDS: FAMOTIDINE 20 MG/2 ML VIAL IV PUSH SCH (08:26)
[2017-12-27] MEDS: BUDESONIDE-FORMOTEROL 160/4.5 MCG INHALER INH SCH (08:27)
[2017-12-27] MEDS: SODIUM CHLORIDE 0.9% FLUSH 10 ML FLUSH IV FLUSH SCH (08:27)
[2017-12-27] MEDS: BETAMETHASONE/CLOTRIMAZOLE CREAM 15 GM TOPICAL SCH (08:27)
[2017-12-27] MEDS: TIOTROPIUM BROMIDE 18 MCG INH INH SCH (08:27)
--- NOTE | 2017-12-27 10:50 | HHI.DS ---
Discharge Summary Admission Date Dec 20, 2017 at 17:27 Discharge Date: Dec 27, 2017 Admitting Diagnosis acute hypoxic resp failure, COPD (1) COPD with acute exacerbation ICD Code: J44.1 - Chronic obstructive pulmonary disease with (acute) exacerbation Status: Acute (2) Acute respiratory failure with hypoxia ICD Code: J96.01 - Acute respiratory failure with hypoxia Status: Acute Procedures See med rec Brief History - From Admission 67-year-old morbidly obese gentleman complained of shortness of breath and called the paramedics. He has history of severe COPD. Uses CPAP at night and uses 6 L of oxygen at night. Paramedics found him on 6 L satting 84%. He has had a gradual worsening of his chronic shortness of breath over the last 24 hours. No chest pain or fever. He has an occasional dry cough. Presented to emergency department in profound respiratory failure. BiPAP therapy was immediately applied with IV steroids and some diuretics with improvement of symptoms. CBC/BMP: 12/25/17 1636 12/25/17 1636 Significant Findings Laboratory Tests Test 12/25/17 16:36 White Blood Count 16.2 TH/MM3 (4.0-11.0) Neutrophils (%) (Auto) 88.0 % (16.0-70.0) Lymphocytes (%) (Auto) 5.1 % (9.0-44.0) Neutrophils # (Auto) 14.2 TH/MM3 (1.8-7.7) Lymphocytes # (Auto) 0.8 TH/MM3 (1.0-4.8) Monocytes # (Auto) 1.1 TH/MM3 (0-0.9) Blood Urea Nitrogen 57 MG/DL (7-18) Creatinine 1.82 MG/DL (0.60-1.30) Random Glucose 216 MG/DL (74-106) Sodium Level 134 MEQ/L (136-145) Estimat Glomerular Filtration Rate 37 ML/MIN (>89) PE at Discharge GENERAL: This is a well-nourished, well-developed patient, in no apparent distress. CARDIOVASCULAR: Regular rate and rhythm without murmurs, gallops, or rubs. RESPIRATORY: Diffuse expiratory wheezes, diminish breath sounds bilaterally. GASTROINTESTINAL: Abdomen soft, non-tender,nondistended. Normal active bowel sounds MUSCULOSKELETAL: Extremities without clubbing, cyanosis, or edema. NEURO: Alert & Oriented x4 to person, place, time, situation. Moves all ext x4 Hospital Course Patient admitted with COPD exacerbation and respiratory failure CHF exacerbation bronchitis, pulmonary consulted, oxygen DuoNeb's IV steroid, antibiotic initiated, cardiology consulted patient has been diuresed, cleared by rupesh Bansal per recycling assistant to be reevaluated as an outpatient. On 12/26 plan was for discharge however patient desaturated easily on ambulation required more than 4 L of oxygen, we held discharge recommended more ambulation and IS repeated home O2 walking test [id number] encounter performed with the patient on discharge day, as well as physical exam, summary of hospitalization course and postdischarge plan has been D/W the patient. D/W nurse D/W rn field case manager. Discharge medications reviewed and printed and signed, post discharge follow up visit with PCP and other specialist as well as Brief hospital course and discharge summary has been placed. Pt Condition on Discharge: Stable Discharge Disposition: Disch w/ Home Health Serv Discharge Time: > 30 minutes Discharge Instructions DIET: Follow Instructions for: Heart Healthy Diet Activities you can perform: See Additionl Instruction Other Activity Instructions: per PT Follow up Referrals: Cardiology - 3-5 Days with Royal Mina MD Cardiology Pulmonology - 1 Week with Juan Luis Mark MD Pulmonology New Medications: Oxygen (O2) (Oxygen (O2)) Device LITER NATHAN.CANULA CONTINUOUS for Prevent Hypoxemia, #2 Oxygen Concentrator Portable Gaseous 2 L/min via Nasal Canula Continuous For 3months, call pulmonary or pcp for renweing Prednisone (Prednisone) 20 Mg Tab 30 MG PO DAILY for resp, #7 TAB 0 Refills Continued Medications: Albuterol 8.5 GM Inh (Proair Hfa 8.5 GM Inh) 90 Mcg/Act Aer 2 PUFF INH Q4-6H PRN for SHORTNESS OF BREATH, #1 INHALER 0 Refills 108 mcg/actuation Aspirin (Aspirin) 325 Mg Tab 325 MG PO DAILY, #30 TAB 0 Refills Atorvastatin (Lipitor) 80 Mg Tab 80 MG PO HS for Cholesterol Management, #30 TAB 0 Refills Carvedilol (Coreg) 6.25 Mg Tab 6.25 MG PO BID, #60 TAB 0 Refills Dutasteride (Dutasteride) 0.5 Mg Cap 0.5 MG PO DAILY for Manage Prostate Problems, #30 CAP 0 Refills Fluticasone-Salmeterol Inh (Advair Diskus Inh) 250-50 Mcg/Blist Aer 1 PUFF INH BID, #1 INHALER 0 Refills Rinse mouth after use. Gabapentin (Gabapentin) 300 Mg Cap 300 MG PO BID, #60 CAP 0 Refills Losartan (Losartan) 100 Mg Tab 100 MG PO DAILY for Blood Pressure Management, #30 TAB 0 Refills Tamsulosin (Tamsulosin) 0.4 Mg Cap 0.4 MG PO HS for Manage Prostate Problems, #30 CAP 0 Refills Tiotropium Inh (Spiriva Handihaler) 18 Mcg Cap 18 MCG INH DAILY for COPD, #30 CAP 0 Refills 1 capsule = 18 mcg Aissatou Palacios MD Dec 27, 2017 10:50
--- NOTE | 2017-12-27 10:52 | HHI.PR ---
Subjective Remarks Patient seen and examined he is on 2 L now on resting He wants to be discharged, I discussed with him the need for increased activity ambulation and doing diet as he agreed Objective Vitals Vital Signs Date Time Temp Pulse Resp B/P (MAP) Pulse Ox O2 Delivery O2 Flow Rate FiO2 12/27/17 08:17 96 Nasal Cannula 2.00 12/27/17 08:00 97.3 72 20 140/70 (93) 100 12/27/17 07:59 73 12/27/17 04:09 98.4 66 20 122/82 (95) 99 12/27/17 04:00 62 12/27/17 04:00 Bi-Pap 6.00 12/27/17 03:53 96 55 12/27/17 01:09 96 55 12/27/17 00:00 98.3 62 20 121/62 (81) 99 12/27/17 00:00 Bi-Pap 12/26/17 23:40 58 12/26/17 21:53 99 55 12/26/17 21:43 94 Nasal Cannula 3.50 12/26/17 20:00 97.1 79 24 136/66 (89) 95 12/26/17 20:00 Nasal Cannula 3.00 Humidified 12/26/17 16:00 98.1 88 18 149/90 (109) 93 12/26/17 14:14 4.00 12/26/17 12:00 97.5 75 18 119/62 (81) 99 I/O 12/26/17 12/26/17 12/26/17 12/27/17 12/27/17 12/27/17 07:00 15:00 23:00 07:00 15:00 23:00 Intake Total 630 ml 240 ml Output Total 725 ml 700 ml 200 ml Balance -725 ml 630 ml -460 ml -200 ml Intake Oral 480 ml 240 ml IV Total 150 ml Output Urine Total 725 ml 700 ml 200 ml # Voids 4 Result Diagram: 12/25/17 1636 12/25/17 1636 Objective Remarks GENERAL: This is a well-nourished, well-developed patient, in no apparent distress. CARDIOVASCULAR: Regular rate and rhythm without murmurs, gallops, or rubs. RESPIRATORY: Diffuse expiratory wheezes, diminish breath sounds bilaterally. GASTROINTESTINAL: Abdomen soft, non-tender,nondistended. Normal active bowel sounds MUSCULOSKELETAL: Extremities without clubbing, cyanosis, or edema. NEURO: Alert & Oriented x4 to person, place, time, situation. Moves all ext x4 Procedures See med rec A/P Problem List: (1) COPD with acute exacerbation ICD Code: J44.1 - Chronic obstructive pulmonary disease with (acute) exacerbation Status: Acute (2) Acute respiratory failure with hypoxia ICD Code: J96.01 - Acute respiratory failure with hypoxia Status: Acute Assessment and Plan 12/26: Plan was to discharge patient home with home O2, patient was ordered, however later on I received a call from the nurse stating that the patient needed 4 L of home O2 to keep his sat above 90, so I held the discharge in order incentive spirometer every hour and ambulate patient to improve his ventilation, will plan on discharging tomorrow and repeat home O2 in a.m. 12/27 :we will repeat home O2 walking test hopefully his requirements will be reasonable for discharge today A/P: COPD exacerbation with respiratory failure BiPAP during naps and overnight Patient is slowly improving with standard therapy Continue with steroids, Levaquin, duo nebs, Symbicort We will obtain oxygen walk test tomorrow Appreciate pulmonology consult Rash He has a dry scaly cracked rash over both palms and soles This has improved with IV steroids he is receiving for his COPD exacerbation We will add Lotrisone for moisture and to treat possible fungal elements CHF exacerbation Acute on chronic, with rhythm irregularity, undergoing diuresis Appreciate cardiology consult Bronchitis Continue with IV Levaquin Recommend smoking cessation Hypertension Continue with Cozaar home dose Constipation Has not been responsive to conservative therapy Will add lactulose 1 today DVT prophylaxis Heparin Discharge Planning Today to home with home health Aissatou Palacios MD Dec 27, 2017 10:52
[2017-12-27] MEDS ORDERED: PILL SPLITTER OTHER PRN (12:45)
--- NOTE | 2017-12-27 13:44 | PD.CARD.PN ---
Subjective Subjective Remarks The patient has SOB with exertion, denies CP, edema or palpitations. He is anxious to leave. Expresses great frustration. (Lakshmi Logan) Objective Medications Current Medications Medications (Trade) Dose Ordered Sig/Marielena Route Start Time Stop Time Status Last Admin (Aspirin) 325 mg DAILY PO 12/21/17 09:00 12/27/17 08:25 (Lipitor) 80 mg HS PO 12/20/17 21:00 12/26/17 20:18 (Coreg) 6.25 mg BID PO 12/20/17 21:00 12/27/17 08:26 (Neurontin) 300 mg BID PO 12/20/17 21:00 12/27/17 08:25 (Flomax) 0.4 mg HS PO 12/20/17 21:00 12/26/17 20:18 (Spiriva Inh) 18 mcg DAILY INH 12/21/17 09:00 12/27/17 08:27 (Tylenol) 650 mg Q6H PRN PO 12/20/17 18:30 (Morphine Inj) 2 mg Q2H PRN IV 12/20/17 20:00 (Restoril) 15 mg HS PRN PO 12/20/17 18:30 12/26/17 20:18 (Duoneb Neb) 1 ampule Q2HR NEB PRN INH 12/20/17 18:30 12/27/17 11:58 (Heparin Inj) 5,000 units Q8H SQ 12/20/17 20:00 12/27/17 12:26 Miscellaneous Information 1 Q361D XX 12/20/17 18:30 12/20/17 22:00 (Chlorhexidine 2% Cloth) Taper DAILY@04 TOP 12/21/17 04:00 12/17/18 03:59 12/25/17 04:00 (Chlorhexidine 2% Cloth) 3 pack UNSCH PRN TOP 12/20/17 18:30 (SoluMEDROL INJ) 40 mg Q6HR IV PUSH 12/21/17 00:00 12/27/17 12:25 Levofloxacin/ Dextrose 150 ml @ 100 mls/hr Q24H IV 12/20/17 20:00 12/26/17 20:00 (Symbicort 160-4.5 Mcg Inh) 1 puff BID INH 3/19/18 21:00 12/27/17 08:27 (Proscar) 5 mg DAILY PO 12/21/17 09:00 12/27/17 08:26 (Mucinex Er) 600 mg BID PO 12/21/17 11:00 12/27/17 08:25 (Catapres) 0.1 mg Q4H PRN PO 12/21/17 10:45 (NS Flush) 2 ml UNSCH PRN IV FLUSH 12/21/17 10:45 12/24/17 08:59 (NS Flush) 2 ml BID IV FLUSH 12/21/17 21:00 12/27/17 08:27 (Zofran Inj) 4 mg Q6H PRN IVP 12/21/17 10:45 (Reglan Inj) 5 mg Q6H PRN IV PUSH 12/21/17 10:45 (Percocet 5-325 Mg) 1 tab Q6H PRN PO 12/21/17 10:45 (Percocet 10-325 Mg) 1 tab Q6H PRN PO 12/21/17 10:45 (Narcan Inj) 0.4 mg UNSCH PRN IV PUSH 12/21/17 10:45 (Cherrie-Colace) 1 tab BID PO 12/21/17 21:00 12/27/17 08:26 (Milk Of Magnesia Liq) 30 ml Q12H PRN PO 12/21/17 10:45 (Senokot) 17.2 mg Q12H PRN PO 12/21/17 10:45 (Dulcolax Supp) 10 mg DAILY PRN RECTAL 12/21/17 10:45 (Lactulose Liq) 30 ml DAILY PRN PO 12/21/17 10:45 (Cozaar) 25 mg DAILY PO 12/24/17 09:00 Future Hold (Lotrisone Cream) 1 applic Q12HR TOPICAL 12/25/17 12:00 12/27/17 08:27 (Pepcid) 10 mg BID PO 12/27/17 21:00 (Pill Splitter) 1 ea UNSCH PRN OTHER 12/27/17 12:45 Vital Signs / I&O Vital Signs Date Time Temp Pulse Resp B/P (MAP) Pulse Ox O2 Delivery O2 Flow Rate FiO2 12/27/17 12:01 82 12/27/17 12:00 97.8 80 20 128/73 (91) 93 12/27/17 08:17 96 Nasal Cannula 2.00 12/27/17 08:00 97.3 72 20 140/70 (93) 100 12/27/17 08:00 Nasal Cannula 4.00 12/27/17 07:59 73 12/27/17 04:09 98.4 66 20 122/82 (95) 99 12/27/17 04:00 62 12/27/17 04:00 Bi-Pap 6.00 12/27/17 03:53 96 55 12/27/17 01:09 96 55 12/27/17 00:00 98.3 62 20 121/62 (81) 99 12/27/17 00:00 Bi-Pap 12/26/17 23:40 58 12/26/17 21:53 99 55 12/26/17 21:43 94 Nasal Cannula 3.50 12/26/17 20:00 97.1 79 24 136/66 (89) 95 12/26/17 20:00 Nasal Cannula 3.00 Humidified 12/26/17 16:00 98.1 88 18 149/90 (109) 93 12/26/17 14:14 4.00 I/O 12/26/17 12/26/17 12/26/17 12/27/17 12/27/17 12/27/17 07:00 15:00 23:00 07:00 15:00 23:00 Intake Total 630 ml 240 ml Output Total 725 ml 700 ml 200 ml Balance -725 ml 630 ml -460 ml -200 ml Intake Oral 480 ml 240 ml IV Total 150 ml Output Urine Total 725 ml 700 ml 200 ml # Voids 4 Physical Exam GENERAL: Obese, middle age male in 1401 SKIN: Warm and dry. HEAD: Normocephalic. EYES: No scleral icterus. No injection or drainage. NECK: Supple, trachea midline. CARDIOVASCULAR: RRR RESPIRATORY: Breath sounds equal bilaterally. Prolonged expiratory phase, On NC GASTROINTESTINAL: Abdomen soft, non-tender, nondistended. MUSCULOSKELETAL: No cyanosis, or edema. BACK: Nontender without obvious deformity. (Lakshmi Logan) Assessment and Plan Assessment and Plan Resolving acute on chronic systolic CHF exacerbation Resolving acute COPD exacerbation Irreg Irreg heart rhythm c/w MAT/WAP and runs of accelerated junction rhythm. History of ischemic CMP. EF currently 50-55% HTN, BP now low Carotid stenosis Former smoker with recent relapse LISE Hyperkalemia Leukocytosis due to steroids PLAN: Hold losartan on discharge and do not resume Aldactone on discharged due to recent recurrent hyperkalemia. Lasix 20 mg PO 1 tablet daily on discharge. instructed to take 2 tablets for weight gain of more than 2-3 lbs in 1-2 days. Follow up in the office in 1-2 weeks in the office The patient was seen and evaluated by Dr Mina who completed face to face encounter, physical exam and participated in evaluation and management. (Lakshmi Logan) Assessment and Plan The exam, history, and the medical decision-making described in the above note were completed with the assistance of the mid-level provider. I reviewed and agree with the findings presented. I attest that I had a [id number] encounter with the patient on the same day, and personally performed and documented my assessment and findings in the medical record. Overall slow improvement (Royal Mina MD) Lakshmi Logan Dec 27, 2017 13:44 Royal Mina MD Dec 27, 2017 15:35
[2017-12-27] MEDS ORDERED: FAMOTIDINE 20 MG TAB PO SCH (21:00)
[2017-12-28] MEDS ORDERED: FUROSEMIDE 20 MG TAB PO SCH (09:00)
== END 2017-12-27 16:45 | disposition home health service (06) | DRG 189 ==
LOC: NEPC 16:23 → NEDA 17:27 → HIME 21:55 → N04A 12-25 08:24
PROVIDERS: ADMIT Hospitalist; ATTEND Hospitalist
PROC: 5A09457 Assistance with Respiratory Ventilation, 24-96 Consecutive Hours, Continuous Positive Airway Pressure (ICD-10-PCS; principal; 2017-12-20)
DX: J96.01 Acute respiratory failure with hypoxia (principal); I50.23 Acute on chronic systolic (congestive) heart failure; N17.9 Acute kidney failure, unspecified; J44.1 Chronic obstructive pulmonary disease with (acute) exacerbation; I13.0 Hypertensive heart and chronic kidney disease with heart failure and stage 1 through stage 4 chronic kidney disease, or unspecified chronic kidney disease; E66.01 Morbid (severe) obesity due to excess calories; Z68.39 Body mass index [BMI] 39.0-39.9, adult; Z96.642 Presence of left artificial hip joint; Z95.5 Presence of coronary angioplasty implant and graft; N18.9 Chronic kidney disease, unspecified; G47.33 Obstructive sleep apnea (adult) (pediatric); I25.10 Atherosclerotic heart disease of native coronary artery without angina pectoris; E78.5 Hyperlipidemia, unspecified; I25.5 Ischemic cardiomyopathy; I65.29 Occlusion and stenosis of unspecified carotid artery; E87.5 Hyperkalemia; F17.210 Nicotine dependence, cigarettes, uncomplicated; R21 Rash and other nonspecific skin eruption; K59.00 Constipation, unspecified
CPT/HCPCS: 36600; 71045; 80048; 80053; 82805; 83036; 83735; 84100; 84439; 84443; 84484; 85025; 85610; 85730; 87449; 87641; 93005; 93306; 94002; 94003; 94150; 94618; 94640; 94664; 96374; J1644; J1940; J1956; J2920